=== PATIENT | male | born 1955 | race Caucasian/White ===

== ENCOUNTER 2017-09-14 01:38 | Emergency (ER) | END 2017-09-14 04:36 | disposition home or self-care (01) ==

== ENCOUNTER 2018-01-13 04:04 | Emergency (ER) | END 2018-01-13 07:05 | disposition home or self-care (01) ==

== ENCOUNTER 2018-05-04 12:46 | Emergency (ER) | END 2018-05-04 15:57 | disposition home or self-care (01) ==

== ENCOUNTER 2018-05-04 18:57 | Inpatient (IN) | END 2018-05-06 11:05 | disposition left against medical advice (07) | DRG 438 ==

== ENCOUNTER 2018-08-16 20:20 | Emergency (ER) | END 2018-08-16 23:25 | disposition home or self-care (01) ==

== ENCOUNTER 2018-11-19 01:22 | Inpatient (IN) | payer MEDICARE, OTHER ==
[~2018-11-19] VITALS: Ht 166.4 cm; Wt 71.7 kg
[~2018-11-19 01:22] MED LIST: ALBU18HF INHALATION; AMLO-147 PO; AZIT250T13 PO; CARV6.2579 PO; LISI40TA3 PO; PRED20TA PO
[2018-11-19] MEDS ORDERED: ONDANSETRON 4 MG INJ IV STA ×2 (04:33→09:00)
[2018-11-19] MEDS ORDERED: SOD CHLORIDE 0.9% 1,000 ML IV STA (04:33)
[2018-11-19] MEDS ORDERED: HYDROmorphONE 1 MG/ML SYG IV STA ×2 (04:33→09:00)
--- NOTE | 2018-11-19 04:57 | ERD ---
ER Documentation Chief Complaint Chief Complaint abdominal pain x 1 day HPI This is a 63-year-old male who had the onset of right lower quadrant pain at 8 PM this evening with some mild radiation to the right mid abdomen. He says he also had some diarrhea. The pain is moderate and constant. Noticed history of kidney stones and no appendectomy. No hematuria or dysuria and is not worse when he urinates. No radiation into the testicle. No back pain no chest pain or shortness of breath no vomiting or fever ROS All systems reviewed and are negative except as per history of present illness. Medications Home Meds Active Scripts Prednisone* (Prednisone*) 20 Mg Tab, 60 MG PO DAILY for 5 Days, TAB Prov:BRYANT JAMES MD 08/16/18 Albuterol Sulfate* (Ventolin HFA*) 18 Gm Hfa.aer.ad, 2 PUFF INHALATION Q4H PRN for WHEEZING, #1 INHALER Prov:BRYANT JAMES MD 08/16/18 Azithromycin* (Azithromycin*) 250 Mg Tablet, 250 MG PO DAILY, #4 TAB Prov:BRYANT JAMES MD 08/16/18 Reported Medications Carvedilol* (Carvedilol*) 6.25 Mg Tablet, 6.25 MG PO BID, #60 TAB 05/04/18 Amlodipine Besylate* (Amlodipine Besylate*) 10 Mg Tablet, 10 MG PO DAILY, #30 TAB 05/04/18 Lisinopril* (Lisinopril*) 40 Mg Tablet, 40 MG PO DAILY, #30 TAB 05/04/18 Allergies Allergies: Coded Allergies: No Known Allergy (Unverified , 08/16/18) PMhx/Soc History of Surgery: No Anesthesia Reaction: No Hx Neurological Disorder: No Hx Respiratory Disorders: No Hx Cardiac Disorders: Yes (HTN) Hx Psychiatric Problems: Yes (Anxiety) Hx Miscellaneous Medical Probl: No (Past drug use pt on methadone) Hx Alcohol Use: No Hx Substance Use: Yes (past IV drug use) Hx Tobacco Use: Yes Smoking Status: Current every day smoker FmHx Family History: No coronary disease Physical Exam Vitals Vital Signs Date Temp Pulse Resp B/P (MAP) Pulse Ox O2 O2 Flow FiO2 Time Delivery Rate 11/19/18 98.0 81 18 165/93 96 Room Air 04:45 (117) 11/19/18 98.0 70 18 111/77 96 01:31 (88) Physical Exam Const: Well-developed, well-nourished Head: Atraumatic, normocephalic Eyes: Normal Conjunctiva, PERRLA, EOMI, normal sclera, no nystagmus ENT: Normal External Ears, Nose and Mouth, moist mucus membranes. Neck: Full range of motion. No meningismus, no lymphadenopathy. Resp: Clear to auscultation bilaterally, no wheezing, rhonchi, rales Cardio: Regular rate and rhythm, no murmurs, S1 S2 present Abd: Soft, moderate right lower quadrant tenderness, non distended. Normal bowel sounds, no guarding or rebound, no pulsitile abdominal masses or bruits Skin: No petechiae or rashes, no ecchymosis , no maculopapular rash Back: No midline or flank tenderness Ext: No cyanosis, or edema, FROM x 4, normal inspection, neurovascularly intact x 4 Neur: Awake and alert, STR 5/5 x 4, sensation intact x 4, no focal findings, cerebellum intact Psych: Normal Mood and Affect Results 24 hrs Current Medications Medications Dose Sig/Milena Start Time Status Last (Trade) Ordered Route PRN Stop Time Admin Dose Reason Admin Sodium 1,000 ml @ Q1H STAT 11/19/18 11/19/18 Chloride 1,000 mls/hr IV 04:33 05:01 11/19/18 05:32 1 mg ONCE STAT 11/19/18 DC 11/19/18 Hydromorphone IV 04:33 05:01 HCl 11/19/18 04:34 (Dilaudid) Ondansetron 4 mg ONCE STAT 11/19/18 DC 11/19/18 HCl (Zofran IV 04:33 05:01 Inj) 11/19/18 04:34 Procedures/MDM The nurses had a difficult time placing an IV and getting blood. Therefore Dr. Kennedy will follow up with labs and CT scan of abdomen and disposition Departure Diagnosis: Primary Impression: Abdominal pain Abdominal location: right lower quadrant Qualified Codes: R10.31 - Right lower quadrant pain Condition: Stable LLUVIA COULTERERISJose AcostaTrupti MCCOY Nov 19, 2018 04:57
[2018-11-19] MEDS ORDERED: IOHEXOL 300MG/ML 150 ML BTL ONE (05:38)
[2018-11-19] MEDS ORDERED: SOD CHLORIDE 0.9% 100 ML ONE (05:38)
[2018-11-19] MEDS ORDERED: CITA10TA5 PO (05:46)
[2018-11-19] MEDS ORDERED: HYDR-3029 PO (05:46)
[2018-11-19] MEDS ORDERED: PIPER-TAZO 3.375 GM IV (PMX) 100 ML IVPB ONE (09:00)
[2018-11-19] MEDS ORDERED: ONDANSETRON 4 MG INJ IV PRN ×3 (09:30→23:30)
[2018-11-19] MEDS ORDERED: ACETAMINOPHEN 325 MG TAB PO PRN (09:30)
--- NOTE | 2018-11-19 09:45 | QN ---
Documentation Comment Patient was endorsed to me pending labs and imaging. The patient is elevated white count of 19. The patient has focal tenderness to the right side of the abdomen. His initial CT with IV contrast had infiltration in the right upper extremity. The patient initially refused repeat CAT scan without contrast. I had a prolonged conversation with the patient discussing risk benefits and alternatives and my concern for acute intra-abdominal process given his localized pain. White count. Patient was agreeable to CT. CT abdomen and pelvis: IMPRESSION: 1. The appendix measures 9 mm in maximal transverse dimension. There are no adjacent inflammatory changes or appendicoliths. 2. Nonspecific small amount of free fluid located in the left half of the pelvis. 3. Bilateral renal cysts. Please note that in the absence of intravenous contrast the study does not evaluate the patency of the vasculature. While the patient CT does not show definitive evidence of acute appendicitis the patient's localized right lower quadrant pain and localized peritonitis as well as with elevated white count is concerning for this process. The patient would benefit from hospitalization, general surgery consultation. He is made n.p.o. A midline was inserted and the patient was given Zosyn. The patient did have infiltration of the right upper extremity. On assessment the patient has no evidence of compartment syndrome. Continue to monitor. Accepting care team and consultations: I discussed the current laboratory data, diagnostic imaging and emergency care provided. Admitting team: Dr. Guy Admitting team indication: Insurance directed General surgeon Dr. Morocho was notified of consultation. Diagnostic impression #1 right lower quadrant abdominal pain #2 acute leukocytosis #3 rule out acute appendicitis JOSE LUIS THOMAS MD Nov 19, 2018 09:45
--- NOTE | 2018-11-19 10:05 | HP ---
Date/Time of Note Date/Time of Note DATE: 11/19/18 TIME: 10:05 Assessment/Plan VTE Prophylaxis SCD applied (from Nsg): Yes Pharmacological prophylaxis: NA/contraindicated Pharm contraindication: low risk/ambulating Lines/Catheters IV Catheter Type (from Nrsg): Saline Lock Assessment/Plan Hospital Course SUBJECTIVE: Seen and evaluated patient in ER room 9. Having 10 out of 10 on lower abdominal/right lower quadrant areas. OBJECTIVE: Vital signs-see below PHYSICAL EXAM: Constitutional: Well-developed, adequately built, lying in bed comfortably. Psych: nl mood/affect, no complaints Head: atraumatic, normocephalic Eyes: nl conjunctiva, nl sclera ENMT: mucosa pink and moist, nl external ears & nose Neck: non-tender, supple Respiratory: clear to auscultation, normal air movement Cardiovascular: nl pulses, regular rate and rhythm Gastrointestinal: Tenderness to RLQ/lower abdomen. No rebound tenderness. .Active bowel sounds all 4 quadrants. Musculoskeletal/extremities: nl extremities to inspection, motor strength equal bilaterally, no focal deficit. Normal pulses,no cyanosis, no edema. 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 1. Abdominal pain/RLQ pain. Rule out etiologies. -CT showed appendix measures 9 mm in maximal transverse dimension. There are no adjacent inflammatory changes or appendicolith=> surgery has been consulted from ER. -Keep patient n.p.o. IV fluids, PRN pain control. No indication for antibiotic at this time as there is no evidence of fevers. Leukocytosis can be reactive. -Obtain lipase,UA and cultures to rule out other etiologies 2. Renal cyst. -Stable renal function. Previously measured 6.3 x 4.5 x 5.2 cm, now 6.9 x 6.8 cm -Urine studies, MRI eval =>Although its very unlikely, I will consult urology to r/o this is not contributing to his symptoms. 3. Leukocytosis w/Left shift , likely concurrent with #1 -Will keep patient on cipro+flagyl -obtain CS. 4. Hypertension -As patient will be kept n.p.o., we will treat with as needed hydralazine. Currently blood pressure stable. Once patient is stable for oral intake, we will resume his home antihypertensives. 5. Tobacco use. -Cessation advised 6. History of IV drug abuse documented -Refused history of illicit drug use. However, we recommend obtaining a urine drug toxicology and blood toxicology. 7. Psychiatric disorders. -Resume home medications once stable for oral. DVT prophylaxis: SCDs PUD prophylaxis: Pepcid CODE STATUS: Full code Diet: N.p.o. Rest of the management depend on hospital course. Approximately 60 m spent on this history and physical. Patient was seen in collaboration with Dr. Beard. Result Diagram: 11/19/18 0552 11/19/18 0552 Results 24hrs Laboratory Tests Test 11/19/18 05:52 White Blood Count 19.5 #H Red Blood Count 5.40 Hemoglobin 16.1 Hematocrit 45.9 Mean Corpuscular Volume 85.0 Mean Corpuscular Hemoglobin 29.8 Mean Corpuscular Hemoglobin Concent 35.1 Red Cell Distribution Width 13.1 Platelet Count 244 Mean Platelet Volume 9.6 Immature Granulocytes % 0.400 Neutrophils % 91.3 H Lymphocytes % 4.1 L Monocytes % 4.0 Eosinophils % 0.1 Basophils % 0.1 Nucleated Red Blood Cells % 0.0 Immature Granulocytes # 0.070 H Neutrophils # 17.8 H Lymphocytes # 0.8 Monocytes # 0.8 Eosinophils # 0.0 Basophils # 0.0 Nucleated Red Blood Cells # 0.0 Sodium Level 139 Potassium Level 4.2 Chloride Level 105 Carbon Dioxide Level 20 L Anion Gap 14 H Blood Urea Nitrogen 9 Creatinine 0.67 Est Glomerular Filtrat Rate mL/min > 60 Glucose Level 157 Calcium Level 9.9 Total Bilirubin 0.4 Direct Bilirubin 0.00 Indirect Bilirubin 0.4 Aspartate Amino Transf (AST/SGOT) 24 Alanine Aminotransferase (ALT/SGPT) 14 Alkaline Phosphatase 88 Total Protein 8.5 H Albumin 4.8 Globulin 3.70 H Albumin/Globulin Ratio 1.29 HPI/ROS Admit Date/Time Admit Date/Time Hx of Present Illness 63-year-old male with a history of hypertension, psychiatric disorders, tobacco use, pancreatitis, documented heroine abuse in the past although patient now refuse it, presented to the emergency room with sudden onset of right lower quadrant/lower and periumbilical abdominal pain started overnight. Patient did not have any fevers, chills, nausea, vomiting, diarrhea, constipation, loss of appetite, chest pain, palpitation, dizziness, or other constitutional symptoms. He also reported mild headache. This patient was known to our hospitalist group in 2017 where he was admitted with pancreatitis, acute kidney injury and patient went AGAINST MEDICAL ADVICE at that time as he insisted to smoke. In ER, initial labs showed white count 19,500. Otherwise unremarkable. Stable vital signs. No fevers. A CT abdomen and pelvis showed 9 mm in maximal transverse dimension. There was evidence of bilateral renal cyst. In ER, patient was given Zosyn, IV fluids and Dilaudid and a surgical consult was called for possible concern for appendicitis. ROS A 12 point review of system was assessed and is negative other than what is mentioned in the HPI. PMH/Family/Social Past Medical History See HPI Medications Current Medications Ondansetron HCl (Zofran Inj) 4 mg BRIDGE ORDER PRN IV NAUSEA/VOMITING; Start 11/19/18 at 09:30; Stop 11/20/18 at 09:29 Acetaminophen (Tylenol Tab) 650 mg ER BRIDGE PRN PO .MILD PAIN 1-3 OR TEMP; Start 11/19/18 at 09:30; Stop 11/20/18 at 09:29 Coded Allergies: No Known Allergy (Unverified , 11/19/18) Past Surgical History None Past Surgical Hx: other Family History Significant Family History: no pertinent family hx Social History Current every day tobacco use, history of IV drug abuse documented in EMR althou gh patient refused that. Smoking Status: Current every day smoker Exam/Review of Systems Vital Signs Vitals Vital Signs Date Temp Pulse Resp B/P (MAP) Pulse Ox O2 O2 Flow FiO2 Time Delivery Rate 11/19/18 98.0 81 18 165/93 96 Room Air 04:45 (117) ODALYS MADDOX NP Nov 19, 2018 10:05
[2018-11-19] MEDS ORDERED: hydrOXYzine HCL 10 MG TAB PO PRN (10:30)
[2018-11-19] MEDS ORDERED: ACETAMINOPHEN 650 MG SUPP PR PRN (10:30)
[2018-11-19] MEDS ORDERED: OXYCODONE/ACETAMINOPHEN (5/325) TAB PO PRN ×2 (10:30→23:30)
[2018-11-19] MEDS ORDERED: hydrALAzine 20 MG INJ IV PRN ×2 (10:30→23:30)
[2018-11-19] MEDS ORDERED: NACL 0.9% 3 ML SYG IV SCH (10:30)
[2018-11-19] MEDS ORDERED: SOD CHLORIDE 0.9% 1,000 ML IV SCH (11:00)
[2018-11-19 11:02] VITALS: Ht 166.4 cm; Wt 71.7 kg
[2018-11-19 11:08] VITALS: BP 136/86; PULSE 87; RESP 18
[2018-11-19] MEDS: CITALOPRAM 20 MG TAB PO SCH (13:15)
[2018-11-19] MEDS: LISINOPRIL 20 MG TAB PO SCH (13:16)
[2018-11-19] MEDS: AMLODIPINE 10 MG TAB PO SCH (13:16)
[2018-11-19] MEDS: CIPROFLOXACIN 400MG/D5W 200 ML IVPB SCH ×2 (13:18→23:41)
[2018-11-19 14:50] VITALS: BP 159/85; PULSE 93; RESP 16
[2018-11-19] MEDS: metroNIDAZOLE 500 MG/NS (PMX) 100 ML IVPB SCH ×2 (15:33→22:24)
--- NOTE | 2018-11-19 18:48 | CONS ---
Assessment/Plan Assessment/Plan Hospital Course (Demo Recall) 63-year-old male presented to the emergency room was right lower quadrant abdominal pain. He underwent a CT scan of the abdomen and pelvis and that showed renal cysts. A urological consultation was requested. Patient states that he has had the pain for about 8 hours. The pain is localized to the right lower quadrant and radiates toward the back and initially started like a knife. There was no associated nausea or vomiting. No radiation to the genital area or legs. He denies any similar pain in the past. Patient does have a history of drug abuse. He has used heroine and states that he is on methadone. On the exam his pain is located to the right side of the umbilicus and toward the right lower quadrant. There is no evidence of hernia in that area. Genitalia are normal and the rectal exam revealed normal soft prostate. The CT scan showed renal cysts but these do not cause pain and his pain is unlikely to be from his kidneys. Urology merrill would recommend to just observe Consultation Date/Type/Reason Admit Date/Time November 19, 2018 Date of Consultation: Nov 19, 2018 Type of Consult Urology Reason for Consultation Right lower quadrant pain and renal cysts Requesting Provider: PALOMO PATEL Date/Time of Note DATE: 11/19/18 TIME: 18:31 Hx of Present Illness 63-year-old male presented to the emergency room was right lower quadrant abdominal pain. He underwent a CT scan of the abdomen and pelvis and that showed renal cysts. A urological consultation was requested. Patient states that he has had the pain for about 8 hours. The pain is localized to the right lower quadrant and radiates toward the back and initially started like a knife. There was no associated nausea or vomiting. No radiation to the genital area or legs. He denies any similar pain in the past. Patient does have a history of drug abuse. He has used heroine and states that he is on methadone. Constitutional: no complaints Eyes: no complaints ENT: no complaints Respiratory: no complaints; No shortness of breath Cardiovascular: no complaints; No chest pain Gastrointestinal: pain (Right lower quadrant) Genitourinary: No dysuria Musculoskeletal: no complaints Skin: no complaints Neurologic: no complaints Endocrine: no complaints Lymphatic: no complaints Psychological: other (Patient very uptight and hesitant to give any history) Immunologic: no complaints Past Medical History Medical History: hypertension Home Meds Active Scripts Albuterol Sulfate* (Ventolin HFA*) 18 Gm Hfa.aer.ad, 2 PUFF INHALATION Q4H PRN for WHEEZING, #1 INHALER Prov:BRYANT JAMES MD 08/16/18 Reported Medications Hydroxyzine Hcl* (Hydroxyzine Hcl*) 10 Mg Tablet, 10 MG PO QAM PRN for ITCHING, #30 TAB 11/19/18 Citalopram Hydrobromide* (Citalopram Hydrobromide*) 10 Mg Tablet, 10 MG PO QAM for 30 Days, #30 11/19/18 Carvedilol* (Carvedilol*) 6.25 Mg Tablet, 6.25 MG PO BID, #60 TAB 05/04/18 Amlodipine Besylate* (Amlodipine Besylate*) 10 Mg Tablet, 10 MG PO DAILY, #30 TAB 05/04/18 Lisinopril* (Lisinopril*) 40 Mg Tablet, 40 MG PO DAILY, #30 TAB 05/04/18 Discontinued Scripts Prednisone* (Prednisone*) 20 Mg Tab, 60 MG PO DAILY for 5 Days, TAB Prov:BRYANT JAMES MD 08/16/18 Azithromycin* (Azithromycin*) 250 Mg Tablet, 250 MG PO DAILY, #4 TAB Prov:BRYANT JAMES MD 08/16/18 Medications Current Medications Ondansetron HCl (Zofran Inj) 4 mg BRIDGE ORDER PRN IV NAUSEA/VOMITING; Start 11/19/18 at 09:30; Stop 11/20/18 at 09:29 Acetaminophen (Tylenol Tab) 650 mg ER BRIDGE PRN PO .MILD PAIN 1-3 OR TEMP; Start 11/19/18 at 09:30; Stop 11/20/18 at 09:29 Sodium Chloride 1,000 ml @ 75 mls/hr [id number] IV ; Start 11/19/18 at 11:00 IV Flush (NS 3 ml) 3 ml PER PROTOCOL IV ; Start 11/19/18 at 10:30 Ondansetron HCl (Zofran Inj) 4 mg Q6H PRN IV NAUSEA/VOMITING; Start 11/19/18 at 10:30 Acetaminophen (Tylenol Supp) 650 mg Q6H PRN TN .PAIN 1-3 OR TEMP; Start 11/05 01/23 at 10:30 Oxycodone/ Acetaminophen (Percocet (5/ 325)) 2 tab Q6H PRN PO .SEVERE PAIN 7- 10; Start 11/19/18 at 10:30 Famotidine (Pepcid Iv) 20 mg Q12 IV ; Start 11/19/18 at 21:00 Hydralazine HCl (Apresoline) 10 mg Q6H PRN IV SBP>160; Start 11/19/18 at 10:30 Amlodipine Besylate (Norvasc) 10 mg DAILY PO ; Start 11/19/18 at 12:00 Carvedilol (Coreg) 6.25 mg BID PO ; Start 11/19/18 at 12:00 Citalopram Hydrobromide (Celexa) 10 mg QAM PO ; Start 11/19/18 at 12:00 Hydroxyzine HCl (Atarax) 10 mg QAM PRN PO ITCHING; Start 11/19/18 at 10:30 Lisinopril (Zestril) 40 mg DAILY PO ; Start 11/19/18 at 12:00 Ciprofloxacin/ Dextrose 200 ml @ 200 mls/hr Q12 IVPB Last administered on 11/19/18at 13:18; Admin Dose 200 MLS/HR; Start 11/19/18 at 13:00 Metronidazole 100 ml @ 100 mls/hr Q8 IVPB Last administered on 11/19/18at 15:33; Admin Dose 100 MLS/HR; Start 11/19/18 at 14:00 Allergies: Coded Allergies: No Known Allergy (Unverified , 11/19/18) Past Surgical History Past Surgical Hx: other (Right shoulder surgery) Social History Alcohol Use: occasionally Smoking Status: Current every day smoker Drug Use: heroin Exam/Review of Systems Exam Vitals Vital Signs Date Temp Pulse Resp B/P (MAP) Pulse Ox O2 O2 Flow FiO2 Time Delivery Rate 11/19/18 100.0 93 16 159/85 94 Room Air 14:50 (109) Constitutional: alert, oriented Psych: other (One has to ask the questions multiple times some time for him to answer.) Head: normocephalic Eyes: nl conjunctiva ENMT: nl external ears & nose Neck: supple, non-tender Respiratory: normal air movement; No wheezing Cardiovascular: nl pulses; No jugular venous distention (JVD) Gastrointestinal: soft, tender (Right lower quadrant and to the right side of the umbilicus) Genitourinary - Male: nl penis, nl scrotum, other (Rectal exam shows prostate that is soft and not enlarged) Musculoskeletal: nl extremities to inspection, muscle weakness Extremities: No calf tenderness Neurological: nl mental status Skin: nl turgor Results Result Diagram: 11/19/18 0552 11/19/18 0552 Results 24hrs Laboratory Tests Test 11/19/18 05:52 11/19/18 13:43 11/19/18 14:11 White Blood Count 19.5 #H Red Blood Count 5.40 Hemoglobin 16.1 Hematocrit 45.9 Mean Corpuscular Volume 85.0 Mean Corpuscular Hemoglobin 29.8 Mean Corpuscular Hemoglobin Concent 35.1 Red Cell Distribution Width 13.1 Platelet Count 244 Mean Platelet Volume 9.6 Immature Granulocytes % 0.400 Neutrophils % 91.3 H Lymphocytes % 4.1 L Monocytes % 4.0 Eosinophils % 0.1 Basophils % 0.1 Nucleated Red Blood Cells % 0.0 Immature Granulocytes # 0.070 H Neutrophils # 17.8 H Lymphocytes # 0.8 Monocytes # 0.8 Eosinophils # 0.0 Basophils # 0.0 Nucleated Red Blood Cells # 0.0 Sodium Level 139 Potassium Level 4.2 Chloride Level 105 Carbon Dioxide Level 20 L Anion Gap 14 H Blood Urea Nitrogen 9 Creatinine 0.67 Est Glomerular Filtrat Rate mL/min > 60 Glucose Level 157 Calcium Level 9.9 Total Bilirubin 0.4 Direct Bilirubin 0.00 Indirect Bilirubin 0.4 Aspartate Amino Transf (AST/SGOT) 24 Alanine Aminotransferase (ALT/SGPT) 14 Alkaline Phosphatase 88 Total Protein 8.5 H Albumin 4.8 Globulin 3.70 H Albumin/Globulin Ratio 1.29 Amylase Level 48 Lipase 84 Ethyl Alcohol Level < 10.0 H Urine Color YELLOW Urine Clarity CLEAR Urine pH 8.0 Urine Specific Butler 1.034 H Urine Ketones NEGATIVE Urine Nitrite NEGATIVE Urine Bilirubin NEGATIVE Urine Urobilinogen NEGATIVE Urine Leukocyte Esterase NEGATIVE Urine Microscopic RBC 4 Urine Microscopic WBC 0 Urine Hemoglobin 1+ H Urine Glucose NEGATIVE Urine Total Protein NEGATIVE Urine Opiates Screen Positive Urine Barbiturates Negative Urine Amphetamines Screen Negative Urine Benzodiazepines Screen Negative Urine Cocaine Screen Negative Urine Cannabinoids Negative Imaging Imaging CT scan of the abdomen and pelvis: In the absence of intravenous contrast, the study constitutes a limited assessment of the solid organs, bowel and vessels. LUNG BASES: Mild emphysematous changes. The heart is not enlarged. ABDOMEN/PELVIS: Liver: Normal noncontrast appearance. Gallbladder: Normal noncontrast appearance. Bile ducts: No intrahepatic or extrahepatic biliary duct dilatation. Spleen: Normal noncontrast appearance. Pancreas: Normal noncontrast appearance. Adrenal glands: Normal noncontrast appearance. Kidneys and ureters: No hydronephrosis. Multiple bilateral renal cysts the largest located in the right mid/upper pole measuring 6.9 x 6.8 cm Aorta and IVC: There are aortic atherosclerotic calcifications. Lymph nodes: Normal noncontrast appearance. Gastrointestinal tract: The stomach is partly collapsed. Small bowel loops are nondistended. Moderate retained fecal matter is seen in the colon. Appendix: The appendix measures 9 mm in maximal transverse dimension on coronal image 38 of series 601. There are no adjacent inflammatory changes or evidence of an appendicolith. Bladder: Normal noncontrast appearance. Pelvic Organs: Normal noncontrast appearance. Peritoneal cavity: No pneumoperitoneum. Small amount of free fluid is identified in the left half of the pelvis on coronal image 60. Abdominal wall: Normal noncontrast appearance. MUSCULOSKELETAL: Bones: No acute fracture.No suspicious bone lesions. Severe disc height loss T8- T9, T9-T10, and T11-T12. Medications Medication Current Medications Ondansetron HCl (Zofran Inj) 4 mg BRIDGE ORDER PRN IV NAUSEA/VOMITING; Start 11/19/18 at 09:30; Stop 11/20/18 at 09:29 Acetaminophen (Tylenol Tab) 650 mg ER BRIDGE PRN PO .MILD PAIN 1-3 OR TEMP; Start 11/19/18 at 09:30; Stop 11/20/18 at 09:29 Sodium Chloride 1,000 ml @ 75 mls/hr [id number] IV ; Start 11/19/18 at 11:00 IV Flush (NS 3 ml) 3 ml PER PROTOCOL IV ; Start 11/19/18 at 10:30 Ondansetron HCl (Zofran Inj) 4 mg Q6H PRN IV NAUSEA/VOMITING; Start 11/19/18 at 10:30 Acetaminophen (Tylenol Supp) 650 mg Q6H PRN TN .PAIN 1-3 OR TEMP; Start 11/19/18 at 10:30 Oxycodone/ Acetaminophen (Percocet (5/ 325)) 2 tab Q6H PRN PO .SEVERE PAIN 7- 10; Start 11/19/18 at 10:30 Famotidine (Pepcid Iv) 20 mg Q12 IV ; Start 11/19/18 at 21:00 Hydralazine HCl (Apresoline) 10 mg Q6H PRN IV SBP>160; Start 11/19/18 at 10:30 Amlodipine Besylate (Norvasc) 10 mg DAILY PO ; Start 11/19/18 at 12:00 Carvedilol (Coreg) 6.25 mg BID PO ; Start 11/19/18 at 12:00 Citalopram Hydrobromide (Celexa) 10 mg QAM PO ; Start 11/19/18 at 12:00 Hydroxyzine HCl (Atarax) 10 mg QAM PRN PO ITCHING; Start 11/19/18 at 10:30 Lisinopril (Zestril) 40 mg DAILY PO ; Start 11/19/18 at 12:00 Ciprofloxacin/ Dextrose 200 ml @ 200 mls/hr Q12 IVPB Last administered on 11/19/18at 13:18; Admin Dose 200 MLS/HR; Start 11/19/18 at 13:00 Metronidazole 100 ml @ 100 mls/hr Q8 IVPB Last administered on 11/19/18at 15:33; Admin Dose 100 MLS/HR; Start 11/19/18 at 14:00 JULIAN PETIT MD Nov 19, 2018 18:41
[2018-11-19 20:38] VITALS: BP 138/86; PULSE 96; RESP 18
[2018-11-19] MEDS: FAMOTIDINE 20 MG INJ IV SCH (20:53)
--- NOTE | 2018-11-19 23:29 | PREAC ---
Date/Time of Note Date/Time of Note DATE: 11/19/18 TIME: 23:27 Anesthesia Eval and Record Evaluation Time Pre-Procedure Interview DATE: 11/19/18 TIME: 23:27 Age 63 Sex male NPO: 8 hrs Preoperative diagnosis Acute Appendicitis Planned procedure Laparoscopic Appendicitis Past Medical History Past Medical History: Includes Cardio: HTN Psych: Depression, Anxiety Recreational drugs: Heroin (history of Heroin abuse but now on methadone) Surgery & Anesthesia Issues No known issue Meds Anticoagulation: No Beta Leigha within 24 hr: Yes Active Scripts Albuterol Sulfate* (Ventolin HFA*) 18 Gm Hfa.aer.ad, 2 PUFF INHALATION Q4H PRN for WHEEZING, #1 INHALER Prov:BRYANT JAMES MD 08/16/18 Reported Medications Hydroxyzine Hcl* (Hydroxyzine Hcl*) 10 Mg Tablet, 10 MG PO QAM PRN for ITCHING, #30 TAB 11/19/18 Citalopram Hydrobromide* (Citalopram Hydrobromide*) 10 Mg Tablet, 10 MG PO QAM for 30 Days, #30 11/19/18 Carvedilol* (Carvedilol*) 6.25 Mg Tablet, 6.25 MG PO BID, #60 TAB 05/04/18 Amlodipine Besylate* (Amlodipine Besylate*) 10 Mg Tablet, 10 MG PO DAILY, #30 TAB 05/04/18 Lisinopril* (Lisinopril*) 40 Mg Tablet, 40 MG PO DAILY, #30 TAB 05/04/18 Discontinued Scripts Prednisone* (Prednisone*) 20 Mg Tab, 60 MG PO DAILY for 5 Days, TAB Prov:BRYANT JAMES MD 08/16/18 Azithromycin* (Azithromycin*) 250 Mg Tablet, 250 MG PO DAILY, #4 TAB Prov:BRYANT JAMES MD 08/16/18 Current Medications Ondansetron HCl (Zofran Inj) 4 mg BRIDGE ORDER PRN IV NAUSEA/VOMITING; Start 11/19/18 at 09:30; Stop 11/20/18 at 09:29 Acetaminophen (Tylenol Tab) 650 mg ER BRIDGE PRN PO .MILD PAIN 1-3 OR TEMP; Start 11/19/18 at 09:30; Stop 11/20/18 at 09:29 Sodium Chloride 1,000 ml @ 75 mls/hr [id number] IV ; Start 11/19/18 at 11:00 IV Flush (NS 3 ml) 3 ml PER PROTOCOL IV ; Start 11/19/18 at 10:30 Ondansetron HCl (Zofran Inj) 4 mg Q6H PRN IV NAUSEA/VOMITING; Start 11/19/18 at 10:30 Acetaminophen (Tylenol Supp) 650 mg Q6H PRN [place] .PAIN 1-3 OR TEMP; Start 11/19/18 at 10:30 Oxycodone/ Acetaminophen (Percocet (5/ 325)) 2 tab Q6H PRN PO .SEVERE PAIN 7- 10; Start 11/19/18 at 10:30 Famotidine (Pepcid Iv) 20 mg Q12 IV Last administered on 11/19/18at 20:53; Admin Dose 20 MG; Start 11/19/18 at 21:00 Hydralazine HCl (Apresoline) 10 mg Q6H PRN IV SBP>160; Start 11/19/18 at 10:30 Amlodipine Besylate (Norvasc) 10 mg DAILY PO ; Start 11/19/18 at 12:00 Carvedilol (Coreg) 6.25 mg BID PO ; Start 11/19/18 at 12:00 Citalopram Hydrobromide (Celexa) 10 mg QAM PO ; Start 11/19/18 at 12:00 Hydroxyzine HCl (Atarax) 10 mg QAM PRN PO ITCHING; Start 11/19/18 at 10:30 Lisinopril (Zestril) 40 mg DAILY PO ; Start 11/19/18 at 12:00 Ciprofloxacin/ Dextrose 200 ml @ 200 mls/hr Q12 IVPB Last administered on 11/19/18at 13:18; Admin Dose 200 MLS/HR; Start 11/19/18 at 13:00 Metronidazole 100 ml @ 100 mls/hr Q8 IVPB Last administered on 11/19/18at 22:24; Admin Dose 100 MLS/HR; Start 11/19/18 at 14:00 Meds reviewed: Yes Allergies Coded Allergies: No Known Allergy (Unverified , 11/19/18) Allergies Reviewed: Yes Labs/Studies Labs Reviewed: Reviewed by anesthesiologist Result Diagram: 11/19/18 0552 11/19/18 0552 Laboratory Tests 11/19/18 05:52 test: N/A Studies: ECG (n/a), CXR (n/a) Pre-procedure Exam Last vitals Vital Signs Date Temp Pulse Resp B/P (MAP) Pulse Ox O2 O2 Flow FiO2 Time Delivery Rate 11/19/18 98.2 96 18 138/86 99 20:38 (103) 11/19/18 Room Air 14:50 Airway: Adequate mouth opening, Adequate thyromental dist Mallampati: Mallampati II Teeth: Normal Lung: Normal Heart: Normal ASA Physical Status ASA physical status: 2 Emergency: E Planned Anesthetic General/MAC: ETT Nerve block: TAP (bilateral) Planned Pain Management Single shot nerve block, Parenteral pain med Pre-operative Attestations Prior to commencing anesthesia and surgery, the patient was re-evaluated, there was verification of: *The patient's identity *The results of appropriate recent lab work and preoperative vital signs *The above evaluation not changing prior to induction *Anesthetic plan, risk benefits, alternative and complications discussed with patient/family; questions answered; patient/family understands, accepts and wishes to proceed. ROSY REVELES MD Nov 19, 2018 23:29
[2018-11-19] MEDS ORDERED: METOCLOPRAMIDE 10 MG INJ IV PRN (23:30)
[2018-11-19] MEDS ORDERED: DIPHENHYDRAMINE 50 MG INJ IV PRN (23:30)
[2018-11-19] MEDS ORDERED: HYDROmorphONE 1 MG/5 ML IV SYRINGE IV PRN ×3 (23:30)
[2018-11-19] MEDS ORDERED: MEPERIDINE 25 MG INJ IV PRN (23:30)
[2018-11-19] MEDS ORDERED: FENTAnyl 50 MCG/ML VIAL IV PRN ×3 (23:30)
[2018-11-19] MEDS ORDERED: EPHEDrine SULFATE 50 MG/5 ML SYG IV PRN (23:30)
[2018-11-19] MEDS ORDERED: LABETALOL HCL 20MG INJ IV PRN (23:30)
[2018-11-19] MEDS ORDERED: PROPOFOL 20 ML ONE (23:31)
[2018-11-19] MEDS ORDERED: MIDAZOLAM 1 MG/ML 2 ML INJ ONE (23:31)
[2018-11-19] MEDS ORDERED: ROCURONIUM 50 MG INJ ONE (23:31)
[2018-11-19] MEDS ORDERED: FENTAnyl 50 MCG/ML VIAL ONE (23:31)
[2018-11-19] MEDS ORDERED: ROPIVACAINE 0.5 % 30 ML VIAL ONE (23:31)
[2018-11-19 23:40] VITALS: BP 145/84; PULSE 83; RESP 16
--- NOTE | 2018-11-19 23:47 | CONS ---
Assessment/Plan Assessment/Plan Assessment/Plan (Daily) Worsening abdominal pain right side of abdomen with CT showing dilation of appendix 9 mm. Patient appears much more tender now on the right side and my clinical suspicion is this is consistent with acute appendicitis despite no significant inflammatory changes on CT. I recommended to the patient that he undergo laparoscopy with laparoscopic appendectomy with possibility of open and understanding that there may be a normal appendix identified but there may be indication for other etiologies of his pain. Patient is agreeable to proceed or has been called we will proceed as soon as scheduling is available Consultation Date/Type/Reason Admit Date/Time November 19, 2018 Date of Consultation: Nov 19, 2018 Type of Consult Surgery consult Reason for Consultation Abdominal pain Requesting Provider: ODALYS MADDOX NP Date/Time of Note DATE: 11/19/18 TIME: 23:47 Hx of Present Illness Patient presented to the emergency room with 2-day history of worsening abdominal pain. Denies any similar symptoms to this in the past. Patient past history significant for substance abuse, heroin now on methadone for the past 2 years. Patient denies any past surgical history or significant past medical history. On evaluation in the emergency room CAT scan showed a dilated appendix without surrounding inflammation though there was also some cysts on the kidneys. Urology consultation did not feel that there was any surgical issues from a urological standpoint. Past Medical History Medical History: hypertension Home Meds Active Scripts Albuterol Sulfate* (Ventolin HFA*) 18 Gm Hfa.aer.ad, 2 PUFF INHALATION Q4H PRN for WHEEZING, #1 INHALER Prov:BRYANT JAMES MD 08/16/18 Reported Medications Hydroxyzine Hcl* (Hydroxyzine Hcl*) 10 Mg Tablet, 10 MG PO QAM PRN for ITCHING, #30 TAB 11/19/18 Citalopram Hydrobromide* (Citalopram Hydrobromide*) 10 Mg Tablet, 10 MG PO QAM for 30 Days, #30 11/19/18 Carvedilol* (Carvedilol*) 6.25 Mg Tablet, 6.25 MG PO BID, #60 TAB 05/04/18 Amlodipine Besylate* (Amlodipine Besylate*) 10 Mg Tablet, 10 MG PO DAILY, #30 TAB 05/04/18 Lisinopril* (Lisinopril*) 40 Mg Tablet, 40 MG PO DAILY, #30 TAB 05/04/18 Discontinued Scripts Prednisone* (Prednisone*) 20 Mg Tab, 60 MG PO DAILY for 5 Days, TAB Prov:BRYANT JAMES MD 08/16/18 Azithromycin* (Azithromycin*) 250 Mg Tablet, 250 MG PO DAILY, #4 TAB Prov:BRYANT JAMES MD 08/16/18 Medications Current Medications Ondansetron HCl (Zofran Inj) 4 mg BRIDGE ORDER PRN IV NAUSEA/VOMITING; Start 11/19/18 at 09:30; Stop 11/20/18 at 09:29 Acetaminophen (Tylenol Tab) 650 mg ER BRIDGE PRN PO .MILD PAIN 1-3 OR TEMP; Start 11/19/18 at 09:30; Stop 11/20/18 at 09:29 Sodium Chloride 1,000 ml @ 75 mls/hr [id number] IV ; Start 11/19/18 at 11:00 IV Flush (NS 3 ml) 3 ml PER PROTOCOL IV ; Start 11/19/18 at 10:30 Ondansetron HCl (Zofran Inj) 4 mg Q6H PRN IV NAUSEA/VOMITING; Start 11/19/18 at 10:30 Acetaminophen (Tylenol Supp) 650 mg Q6H PRN [place] .PAIN 1-3 OR TEMP; Start 11/19/18 at 10:30 Oxycodone/ Acetaminophen (Percocet (5/ 325)) 2 tab Q6H PRN PO .SEVERE PAIN 7- 10; Start 11/19/18 at 10:30 Famotidine (Pepcid Iv) 20 mg Q12 IV Last administered on 11/19/18at 20:53; Admin Dose 20 MG; Start 11/19/18 at 21:00 Hydralazine HCl (Apresoline) 10 mg Q6H PRN IV SBP>160; Start 11/19/18 at 10:30 Amlodipine Besylate (Norvasc) 10 mg DAILY PO ; Start 11/19/18 at 12:00 Carvedilol (Coreg) 6.25 mg BID PO ; Start 11/19/18 at 12:00 Citalopram Hydrobromide (Celexa) 10 mg QAM PO ; Start 11/19/18 at 12:00 Hydroxyzine HCl (Atarax) 10 mg QAM PRN PO ITCHING; Start 11/19/18 at 10:30 Lisinopril (Zestril) 40 mg DAILY PO ; Start 11/19/18 at 12:00 Ciprofloxacin/ Dextrose 200 ml @ 200 mls/hr Q12 IVPB Last administered on 11/19/18at 23:41; Admin Dose 200 MLS/HR; Start 11/19/18 at 13:00 Metronidazole 100 ml @ 100 mls/hr Q8 IVPB Last administered on 11/19/18at 22:24; Admin Dose 100 MLS/HR; Start 11/19/18 at 14:00 Hydromorphone HCl (Dilaudid) 0.2 mg PACU PRN IV MILD PAIN 1-3; Start 11/19/18 at 23:30; Stop 11/20/18 at 04:00 Hydromorphone HCl (Dilaudid) 0.4 mg PACU PRN IV MOD PAIN 4-6; Start 11/19/18 at 23:30; Stop 11/20/18 at 04:00 Hydromorphone HCl (Dilaudid) 0.6 mg PACU PRN IV SEVERE PAIN 7-10; Start 11/19/18 at 23:30; Stop 11/20/18 at 04:00 Fentanyl (Sublimaze) 25 mcg PACU ORDER PRN IV MILD PAIN 1-3; Start 11/19/18 at 23:30; Stop 11/20/18 at 04:00 Fentanyl (Sublimaze) 50 mcg PACU ORDER PRN IV MOD PAIN 4-6; Start 11/19/18 at 23:30; Stop 11/20/18 at 04:00 Fentanyl (Sublimaze) 75 mcg PACU ORDER PRN IV SEVERE PAIN 7-10; Start 11/19/18 at 23:30; Stop 11/20/18 at 04:00 Oxycodone/ Acetaminophen (Percocet (5/ 325)) 1 tab PACU ORDER PRN PO .PAIN 1-5; Start 11/19/18 at 23:30; Stop 11/20/18 at 04:00 Ondansetron HCl (Zofran Inj) 4 mg PACU ORDER PRN IV NAUSEA/VOMITING; Start 11/19/18 at 23:30; Stop 11/20/18 at 04:00 Metoclopramide HCl (Reglan) 10 mg PACU ORDER PRN IV NAUSEA/VOMITING; Start 11/19/18 at 23:30; Stop 11/20/18 at 04:00 Labetalol HCl (Labetalol) 5 mg PACU ORDER PRN IV HIGH BLOOD PRESSURE; Start 11/19/18 at 23:30; Stop 11/20/18 at 04:00 Hydralazine HCl (Apresoline) 5 mg PACU ORDER PRN IV HIGH BLOOD PRESSURE; Start 11/19/18 at 23:30; Stop 11/20/18 at 04:00 Ephedrine Sulfate 5 mg PACU ORDER PRN IV BLOOD PRESSURE SUPPORT; Start 11/19/18 at 23:30; Stop 11/20/18 at 04:00 Meperidine HCl (Demerol) 25 mg PACU ORDER PRN IV .RIGORS; Start 11/19/18 at 23:30; Stop 11/20/18 at 04:00 Diphenhydramine HCl (Benadryl) 25 mg PACU ORDER PRN IV .PRURITUS; Start 11/19/18 at 23:30; Stop 11/20/18 at 04:00 Allergies: Coded Allergies: No Known Allergy (Unverified , 11/19/18) Past Surgical History Past Surgical Hx: other (Right shoulder surgery) Social History Alcohol Use: occasionally Smoking Status: Current every day smoker Drug Use: heroin Exam/Review of Systems Exam Vitals Vital Signs Date Temp Pulse Resp B/P (MAP) Pulse Ox O2 O2 Flow FiO2 Time Delivery Rate 11/19/18 98.6 83 16 145/84 94 23:40 (104) 11/19/18 Room Air 14:50 Exam Patient states that he feels slightly better however on examination his right lower quadrant was significantly tender with local peritonitis. Her graph lungs clear to auscultation. Heart regular rate and rhythm without gallops murmurs or rubs. Abdomen as above marked tenderness right side of abdomen right lower quadrant greater than left. Results Result Diagram: 11/19/18 0552 11/19/18 0552 Results 24hrs Laboratory Tests Test 11/19/18 05:52 11/19/18 13:43 11/19/18 14:11 11/19/18 23:18 White Blood Count 19.5 #H Red Blood Count 5.40 Hemoglobin 16.1 Hematocrit 45.9 Mean Corpuscular 85.0 Volume Mean Corpuscular 29.8 Hemoglobin Mean Corpuscular 35.1 Hemoglobin Concent Red Cell 13.1 Distribution Width Platelet Count 244 Mean Platelet Volume 9.6 Immature 0.400 Granulocytes % Neutrophils % 91.3 H Lymphocytes % 4.1 L Monocytes % 4.0 Eosinophils % 0.1 Basophils % 0.1 Nucleated Red Blood 0.0 Cells % Immature 0.070 H Granulocytes # Neutrophils # 17.8 H Lymphocytes # 0.8 Monocytes # 0.8 Eosinophils # 0.0 Basophils # 0.0 Nucleated Red Blood 0.0 Cells # Sodium Level 139 Potassium Level 4.2 Chloride Level 105 Carbon Dioxide Level 20 L Anion Gap 14 H Blood Urea Nitrogen 9 Creatinine 0.67 Est Glomerular > 60 Filtrat Rate mL/min Glucose Level 157 Calcium Level 9.9 Total Bilirubin 0.4 Direct Bilirubin 0.00 Indirect Bilirubin 0.4 Aspartate Amino 24 Transf (AST/SGOT) Alanine 14 Aminotransferase (AL T/SGPT) Alkaline Phosphatase 88 Total Protein 8.5 H Albumin 4.8 Globulin 3.70 H Albumin/Globulin 1.29 Ratio Amylase Level 48 Lipase 84 Ethyl Alcohol Level < 10.0 H Urine Color YELLOW Urine Clarity CLEAR Urine pH 8.0 Urine Specific 1.034 H Criders Urine Ketones NEGATIVE Urine Nitrite NEGATIVE Urine Bilirubin NEGATIVE Urine Urobilinogen NEGATIVE Urine Leukocyte NEGATIVE Esterase Urine Microscopic 4 RBC Urine Microscopic 0 WBC Urine Hemoglobin 1+ H Urine Glucose NEGATIVE Urine Total Protein NEGATIVE Urine Opiates Screen Positive Urine Barbiturates Negative Urine Amphetamines Negative Screen Urine Negative Benzodiazepines Screen Urine Cocaine Screen Negative Urine Cannabinoids Negative Prothrombin Time 14.4 Prothrombin Time 1.1 Ratio INR International 1.11 Normalized Ratio Activated 34.7 Partial Thromboplast Time Medications Medication Current Medications Ondansetron HCl (Zofran Inj) 4 mg BRIDGE ORDER PRN IV NAUSEA/VOMITING; Start 11/19/18 at 09:30; Stop 11/20/18 at 09:29 Acetaminophen (Tylenol Tab) 650 mg ER BRIDGE PRN PO .MILD PAIN 1-3 OR TEMP; Start 11/19/18 at 09:30; Stop 11/20/18 at 09:29 Sodium Chloride 1,000 ml @ 75 mls/hr [id number] IV ; Start 11/19/18 at 11:00 IV Flush (NS 3 ml) 3 ml PER PROTOCOL IV ; Start 11/19/18 at 10:30 Ondansetron HCl (Zofran Inj) 4 mg Q6H PRN IV NAUSEA/VOMITING; Start 11/19/18 at 10:30 Acetaminophen (Tylenol Supp) 650 mg Q6H PRN [place] .PAIN 1-3 OR TEMP; Start 11/19/18 at 10:30 Oxycodone/ Acetaminophen (Percocet (5/ 325)) 2 tab Q6H PRN PO .SEVERE PAIN 7-10; Start 11/19/18 at 10:30 Famotidine (Pepcid Iv) 20 mg Q12 IV Last administered on 11/19/18at 20:53; Admin Dose 20 MG; Start 11/19/18 at 21:00 Hydralazine HCl (Apresoline) 10 mg Q6H PRN IV SBP>160; Start 11/19/18 at 10:30 Amlodipine Besylate (Norvasc) 10 mg DAILY PO ; Start 11/19/18 at 12:00 Carvedilol (Coreg) 6.25 mg BID PO ; Start 11/19/18 at 12:00 Citalopram Hydrobromide (Celexa) 10 mg QAM PO ; Start 11/19/18 at 12:00 Hydroxyzine HCl (Atarax) 10 mg QAM PRN PO ITCHING; Start 11/19/18 at 10:30 Lisinopril (Zestril) 40 mg DAILY PO ; Start 11/19/18 at 12:00 Ciprofloxacin/ Dextrose 200 ml @ 200 mls/hr Q12 IVPB Last administered on 11/19/18at 23:41; Admin Dose 200 MLS/HR; Start 11/19/18 at 13:00 Metronidazole 100 ml @ 100 mls/hr Q8 IVPB Last administered on 11/19/18at 22:24; Admin Dose 100 MLS/HR; Start 11/19/18 at 14:00 Hydromorphone HCl (Dilaudid) 0.2 mg PACU PRN IV MILD PAIN 1-3; Start 11/19/18 at 23:30; Stop 11/20/18 at 04:00 Hydromorphone HCl (Dilaudid) 0.4 mg PACU PRN IV MOD PAIN 4-6; Start 11/19/18 at 23:30; Stop 11/20/18 at 04:00 Hydromorphone HCl (Dilaudid) 0.6 mg PACU PRN IV SEVERE PAIN 7-10; Start 11/19/18 at 23:30; Stop 11/20/18 at 04:00 Fentanyl (Sublimaze) 25 mcg PACU ORDER PRN IV MILD PAIN 1-3; Start 11/19/18 at 23:30; Stop 11/20/18 at 04:00 Fentanyl (Sublimaze) 50 mcg PACU ORDER PRN IV MOD PAIN 4-6; Start 11/19/18 at 23:30; Stop 11/20/18 at 04:00 Fentanyl (Sublimaze) 75 mcg PACU ORDER PRN IV SEVERE PAIN 7-10; Start 11/19/18 at 23:30; Stop 11/20/18 at 04:00 Oxycodone/ Acetaminophen (Percocet (5/ 325)) 1 tab PACU ORDER PRN PO .PAIN 1-5; Start 11/19/18 at 23:30; Stop 11/20/18 at 04:00 Ondansetron HCl (Zofran Inj) 4 mg PACU ORDER PRN IV NAUSEA/VOMITING; Start 11/19/18 at 23:30; Stop 11/20/18 at 04:00 Metoclopramide HCl (Reglan) 10 mg PACU ORDER PRN IV NAUSEA/VOMITING; Start 11/19/18 at 23:30; Stop 11/20/18 at 04:00 Labetalol HCl (Labetalol) 5 mg PACU ORDER PRN IV HIGH BLOOD PRESSURE; Start 11/19/18 at 23:30; Stop 11/20/18 at 04:00 Hydralazine HCl (Apresoline) 5 mg PACU ORDER PRN IV HIGH BLOOD PRESSURE; Start 11/19/18 at 23:30; Stop 11/20/18 at 04:00 Ephedrine Sulfate 5 mg PACU ORDER PRN IV BLOOD PRESSURE SUPPORT; Start 11/19/18 at 23:30; Stop 11/20/18 at 04:00 Meperidine HCl (Demerol) 25 mg PACU ORDER PRN IV .RIGORS; Start 11/19/18 at 23:30; Stop 11/20/18 at 04:00 Diphenhydramine HCl (Benadryl) 25 mg PACU ORDER PRN IV .PRURITUS; Start 11/19/18 at 23:30; Stop 11/20/18 at 04:00 ERNIE SANCHEZ MD Nov 19, 2018 23:47
[2018-11-20] VITALS (20 sets, daily range): BP systolic 116–152; BP diastolic 69–93; PULSE 73–102; RESP 13–26
[2018-11-20] MEDS ORDERED: hydrALAzine 20 MG INJ ONE (00:58)
[2018-11-20] MEDS ORDERED: ONDANSETRON 4 MG INJ ONE (01:07)
[2018-11-20] MEDS ORDERED: METOCLOPRAMIDE 10 MG INJ ONE (01:07)
[2018-11-20] MEDS ORDERED: DEXAMETHASONE 4 MG/ML 5 ML INJ ONE (01:07)
[2018-11-20] MEDS ORDERED: SUGAMMADEX SODIUM 200 MG/2 ML VIAL IV ONE (01:49)
[2018-11-20] MEDS ORDERED: KETOROLAC 30 MG INJ ONE (01:51)
[2018-11-20] MEDS ORDERED: VANCOMYCIN 1 GM (PMX) 250 ML ONE (01:53)
[2018-11-20] MEDS: D5W-0.45 NACL + KCL 20 MEQ 1,000 ML IV SCH ×4 (02:09→21:39)
--- NOTE | 2018-11-20 02:09 | OPR ---
Date/Time of Note Date/Time of Note DATE: 11/20/18 TIME: 02:02 Operative Report Free Text/Dictation Operative report Procedure Date: Nov 20, 2018 Preoperative Diagnosis Appendicitis Postoperative Diagnosis Ischemic colitis with possible appendicitis and necrotic cecum Operation/Procedure Performed Laparoscopic cecectomy and appendectomy Surgeon Ernie Morocho MD see signature line [employer] None Anesthesia Type: general Anesthesiologist: ROSY REVELES MD Estimated Blood Loss: 0 - 10 ml's Transfusion none Specimen En bloc partial cecum and appendix Grafts/Implants none Tubes/Drains None Complications none Pt Condition Post Procedure: stable Disposition: PACU Indications Patient admitted through the emergency room with vague abdominal complaints of pain mostly on the right side. The CAT scan revealed a dilated appendix but wi thout inflammatory changes surrounding I was consulted to see the patient and when I saw patient he had localized peritonitis and I recommended that he undergo laparoscopic appendectomy understanding that there may be other findings which would also be indication for exploration. The patient agreed to proceed or was called and he was brought urgently to the operating room Procedure Description Patient was brought to the operative room placed supine position general she is administered with intubation the patient prepped draped in sterile fashion a tap block was performed by anesthesia. A timeout was completed. Orogastric tube was inserted. A Veress needle in the left upper quadrant Hdz's point was inserted and insufflation delivered to maintain pneumoperitoneum 50 minutes without procedure. A small stab incision was made just above the umbilicus and a 5 mm trocar was inserted under direct visualization with a 35 her laparoscope there is new was removed and infraumbilical 5 mm trocar in the suprapubic 12 mm trocar was inserted next. The patient was placed in slight Trendelenburg and right side up position. The right lower quadrant was explored the appendix was identified it did appear to be moderately thickened and injected however there was immediately noted some omentum covering an area of what appeared to be the cecum which was ischemic and violaceous in color. When this was elevated it appeared that a portion of the cecum was in fact ischemic though not perforated. The remainder of the cecum appeared healthy. There was also the appendix itself appeared to be abnormal and injected. There was some turbid fluid surrounding this. The appendix was then elevated and a window was made in the mesoappendix and an Sunbrook stapler was used to divide the mesoappendix was felt that there was enough redundancy in the cecum that once this is ischemic purple area which span approximately 3-4 cm this was elevated and it almost seems intussuscepted into part of the cecum this was elevated to healthy borders and a Sunbrook 60 mm thick tissue cartridge was used to divide and segmental partial septectomy second application of his able to be used. The staple line was then reinforced with interrupted 3-0 silk. Inspection of the staple line appeared to have a healthy closure with the silk. The specimen bag was then inserted into the suprapubic port and the specimen of the cecum partial cecectomy and appendix were taken together. The final inspection showed good hemostasis and excessive fluid the area was irrigated and aspirated until clear. The pneumoperitoneum was allowed to escape the trochars were removed the skin incision closed with 4- 0 Monocryl and Dermabond. Patient was explained the operative retrograde room in stable condition. Sponge and needle count correct x2 ERNIE MOROCHO MD Nov 20, 2018 02:09
--- NOTE | 2018-11-20 02:25 | PAC ---
Date/Time of Note Date/Time of Note DATE: 11/20/18 TIME: 02:24 Post-Anesthesia Notes Post-Anesthesia Note Last documented vital signs Vital Signs Date Temp Pulse Resp B/P (MAP) Pulse Ox O2 O2 Flow FiO2 Time Delivery Rate 11/20/18 98.6 83 16 145/84 94 02:40 (104) 11/19/18 Room Air 14:50 Activity: WNL Respiratory function: WNL Cardiovascular function: WNL Mental status: Baseline Pain reasonably controlled: Yes Hydration appropriate: Yes Nausea/Vomiting absent: Yes ROSY REVELES MD Nov 20, 2018 02:25
[2018-11-20] MEDS ORDERED: ACETAMINOPHEN 325 MG TAB PO PRN (02:30)
[2018-11-20] MEDS ORDERED: ONDANSETRON 4 MG INJ IV PRN (02:30)
[2018-11-20] MEDS: PIPER-TAZO 3.375 GM IV (PMX) 100 ML IVPB SCH ×4 (05:20→23:38)
[2018-11-20] MEDS: metroNIDAZOLE 500 MG/NS (PMX) 100 ML IVPB SCH ×3 (06:11→22:36)
[2018-11-20] MEDS: FAMOTIDINE 20 MG INJ IV SCH ×4 (09:00→21:27)
[2018-11-20] MEDS: AMLODIPINE 10 MG TAB PO SCH (09:01)
[2018-11-20] MEDS: LISINOPRIL 20 MG TAB PO SCH (09:01)
[2018-11-20] MEDS: CITALOPRAM 20 MG TAB PO SCH (09:02)
[2018-11-20] MEDS: CIPROFLOXACIN 400MG/D5W 200 ML IVPB SCH ×2 (09:07→21:26)
--- NOTE | 2018-11-20 11:42 | PN ---
Date/Time of Note Date/Time of Note DATE: 11/20/18 TIME: 11:34 Assessment/Plan VTE Prophylaxis Risk score (from [facility] [place])>0 risk: 4 SCD applied (from [facility] [place]): Yes Pharmacological prophylaxis: NA/contraindicated Pharm contraindication: low risk/ambulating, surgical contra Lines/Catheters IV Catheter Type ([facility]): Mid Line Assessment/Plan Hospital Course SUBJECTIVE: Status post laparoscopic appendectomy OBJECTIVE: Vital signs-see below PHYSICAL EXAM: Constitutional: Well-developed, adequately built, lying in bed comfortably. Psych: nl mood/affect, no complaints Head: atraumatic, normocephalic Eyes: nl conjunctiva, nl sclera ENMT: mucosa pink and moist, nl external ears & nose Neck: non-tender, supple Respiratory: clear to auscultation, normal air movement Cardiovascular: nl pulses, regular rate and rhythm Gastrointestinal: Surgical site on abdomen intact.. No rebound tenderness. .Active bowel sounds all 4 quadrants. Musculoskeletal/extremities: nl extremities to inspection, motor strength equal bilaterally, no focal deficit. Normal pulses,no cyanosis, no edema. 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 1. Abdominal pain/RLQ pain 2/2 ischemic colitis with possible appendicitis -s/p Laparoscopic cecectomy and appendectomy=> operative note shows ischemic colitis with possible appendicitis. I will discuss this with patient surgeon Dr. Morocho regarding the need for calling a vascular consult. -Continue antibiotics and postoperative management per surgery. 2. Stable bilateral renal cyst. -Appreciate urology consultation. Will monitor. 3. Leukocytosis w/Left shift , likely concurrent with #1 -Improving. Continue antibiotics and follow-up cultures. 4. Hypertension -We will resume home antihypertensives. 5. Tobacco use. -Cessation advised 6. Psychiatric disorders. -Resume home medications DVT prophylaxis: SCDs PUD prophylaxis: Pepcid CODE STATUS: Full code Diet: Diet advancement per surgery. Disposition: s/p surgery.change admit status to inpatient. Continue current management. Follow-up surgical recommendations. Patient was seen in collaboration with Dr. Alvarez. Result Diagram: 11/20/18 0434 11/20/18 0434 Results 24hrs Laboratory Tests Test 11/19/18 13:43 11/19/18 14:11 11/19/18 23:18 11/20/18 04:34 Amylase Level 48 Lipase 84 Ethyl Alcohol Level < 10.0 H Urine Color YELLOW Urine Clarity CLEAR Urine pH 8.0 Urine Specific 1.034 H [place] Urine Ketones NEGATIVE Urine Nitrite NEGATIVE Urine Bilirubin NEGATIVE Urine Urobilinogen NEGATIVE Urine Leukocyte NEGATIVE Esterase Urine Microscopic 4 RBC Urine Microscopic 0 WBC Urine Hemoglobin 1+ H Urine Glucose NEGATIVE Urine Total Protein NEGATIVE Urine Opiates Screen Positive Urine Barbiturates Negative Urine Amphetamines Negative Screen Urine Negative Benzodiazepines Screen Urine Cocaine Screen Negative Urine Cannabinoids Negative Prothrombin Time 14.4 Prothrombin Time 1.1 Ratio INR International 1.11 Normalized Ratio Activated 34.7 Partial Thromboplast Time White Blood Count 18.1 H Red Blood Count 4.70 Hemoglobin 14.0 Hematocrit 40.6 L Mean Corpuscular 86.4 Volume Mean Corpuscular 29.8 Hemoglobin Mean Corpuscular 34.5 Hemoglobin Concent Red Cell 13.3 Distribution Width Platelet Count 232 Mean Platelet Volume 9.9 Immature 0.700 H Granulocytes % Neutrophils % 94.0 H Lymphocytes % 3.2 L Monocytes % 2.0 Eosinophils % 0.0 Basophils % 0.1 Nucleated Red Blood 0.0 Cells % Immature 0.130 H Granulocytes # Neutrophils # 17.0 H Lymphocytes # 0.6 L Monocytes # 0.4 Eosinophils # 0.0 Basophils # 0.0 Nucleated Red Blood 0.0 Cells # Sodium Level 136 Potassium Level 3.5 Chloride Level 104 Carbon Dioxide Level 23 Anion Gap 9 # Blood Urea Nitrogen 9 Creatinine 0.65 Est Glomerular > 60 Filtrat Rate mL/min Glucose Level 169 Hemoglobin A1c 5.3 Calcium Level 9.1 Phosphorus Level 1.1 L Magnesium Level 1.8 Total Bilirubin 0.7 Direct Bilirubin 0.00 Indirect Bilirubin 0.7 Aspartate Amino 16 Transf (AST/SGOT) Alanine 13 Aminotransferase (AL T/SGPT) Alkaline Phosphatase 63 Total Protein 6.9 # Albumin 3.9 Globulin 3.00 Albumin/Globulin 1.30 Ratio Triglycerides Level 67 Cholesterol Level 195 LDL Cholesterol, 136 Calculated HDL Cholesterol 46 Cholesterol/HDL 4.2 Ratio Exam/Review of Systems Exam Vitals Vital Signs Date Temp Pulse Resp B/P (MAP) Pulse Ox O2 O2 Flow FiO2 Time Delivery Rate 11/20/18 98.1 82 17 147/84 98 Room Air 08:49 (105) 11/20/18 10.0 02:21 Intake and Output 11/19/18 11/19/18 11/20/18 1515:00 23:00 07:00 IntakeIntake Total 1000 ml 1850 ml OutputOutput Total 757 ml BalanceBalance 1000 ml 1093 ml Results Results 24hrs Laboratory Tests Test 11/19/18 13:43 11/19/18 14:11 11/19/18 23:18 11/20/18 04:34 Amylase Level 48 Lipase 84 Ethyl Alcohol Level < 10.0 H Urine Color YELLOW Urine Clarity CLEAR Urine pH 8.0 Urine Specific 1.034 H [place] Urine Ketones NEGATIVE Urine Nitrite NEGATIVE Urine Bilirubin NEGATIVE Urine Urobilinogen NEGATIVE Urine Leukocyte NEGATIVE Esterase Urine Microscopic 4 RBC Urine Microscopic 0 WBC Urine Hemoglobin 1+ H Urine Glucose NEGATIVE Urine Total Protein NEGATIVE Urine Opiates Screen Positive Urine Barbiturates Negative Urine Amphetamines Negative Screen Urine Negative Benzodiazepines Screen Urine Cocaine Screen Negative Urine Cannabinoids Negative Prothrombin Time 14.4 Prothrombin Time 1.1 Ratio INR International 1.11 Normalized Ratio Activated 34.7 Partial Thromboplast Time White Blood Count 18.1 H Red Blood Count 4.70 Hemoglobin 14.0 Hematocrit 40.6 L Mean Corpuscular 86.4 Volume Mean Corpuscular 29.8 Hemoglobin Mean Corpuscular 34.5 Hemoglobin Concent Red Cell 13.3 Distribution Width Platelet Count 232 Mean Platelet Volume 9.9 Immature 0.700 H Granulocytes % Neutrophils % 94.0 H Lymphocytes % 3.2 L Monocytes % 2.0 Eosinophils % 0.0 Basophils % 0.1 Nucleated Red Blood 0.0 Cells % Immature 0.130 H Granulocytes # Neutrophils # 17.0 H Lymphocytes # 0.6 L Monocytes # 0.4 Eosinophils # 0.0 Basophils # 0.0 Nucleated Red Blood 0.0 Cells # Sodium Level 136 Potassium Level 3.5 Chloride Level 104 Carbon Dioxide Level 23 Anion Gap 9 # Blood Urea Nitrogen 9 Creatinine 0.65 Est Glomerular > 60 Filtrat Rate mL/min Glucose Level 169 Hemoglobin A1c 5.3 Calcium Level 9.1 Phosphorus Level 1.1 L Magnesium Level 1.8 Total Bilirubin 0.7 Direct Bilirubin 0.00 Indirect Bilirubin 0.7 Aspartate Amino 16 Transf (AST/SGOT) Alanine 13 Aminotransferase (AL T/SGPT) Alkaline Phosphatase 63 Total Protein 6.9 # Albumin 3.9 Globulin 3.00 Albumin/Globulin 1.30 Ratio Triglycerides Level 67 Cholesterol Level 195 LDL Cholesterol, 136 Calculated HDL Cholesterol 46 Cholesterol/HDL 4.2 Ratio Medications Medication Current Medications IV Flush (NS 3 ml) 3 ml PER PROTOCOL IV ; Start 11/19/18 at 10:30 Ondansetron HCl (Zofran Inj) 4 mg Q6H PRN IV NAUSEA/VOMITING; Start 11/19/18 at 10:30 Acetaminophen (Tylenol Supp) 650 mg Q6H PRN [place] .PAIN 1-3 OR TEMP; Start 11/19/18 at 10:30 Oxycodone/ Acetaminophen (Percocet (5/ 325)) 2 tab Q6H PRN PO .SEVERE PAIN 7- 10; Start 11/19/18 at 10:30 Famotidine (Pepcid Iv) 20 mg Q12 IV Last administered on 11/20/18 09:01; Admin Dose 20 MG; Start 11/19/18 at 21:00 Hydralazine HCl (Apresoline) 10 mg Q6H PRN IV SBP>160; Start 11/19/18 at 10:30 Amlodipine Besylate (Norvasc) 10 mg DAILY PO Last administered on 11/20/18 09:01; Admin Dose 10 MG; Start 11/19/18 at 12:00 Carvedilol (Coreg) 6.25 mg BID PO Last administered on 11/20/18 09:02; Admin Dose 6.25 MG; Start 11/19/18 at 12:00 Citalopram Hydrobromide (Celexa) 10 mg QAM PO Last administered on 11/20/18 09:02; Admin Dose 10 MG; Start 11/19/18 at 12:00 Hydroxyzine HCl (Atarax) 10 mg QAM PRN PO ITCHING; Start 11/19/18 at 10:30 Lisinopril (Zestril) 40 mg DAILY PO Last administered on 11/20/18 09:01; Admin Dose 40 MG; Start 11/19/18 at 12:00 Ciprofloxacin/ Dextrose 200 ml @ 200 mls/hr Q12 IVPB Last administered on 11/20/18 09:07; Admin Dose 200 MLS/HR; Start 11/19/18 at 13:00 Metronidazole 100 ml @ 100 mls/hr Q8 IVPB Last administered on 11/20/18at 06:11; Admin Dose 100 MLS/HR; Start 11/19/18 at 14:00 Piperacillin Sod/ Tazobactam Sod 100 ml @ 200 mls/hr Q6 IVPB Last administered on 11/20/18at 05:20; Admin Dose 200 MLS/HR; Start 11/20/18 at 06:00 Ondansetron HCl (Zofran Inj) 4 mg Q6H PRN IV NAUSEA AND/OR VOMITING; Start at 02:30 Acetaminophen (Tylenol Tab) 650 mg Q6H PRN PO PAIN LEVEL 1-3 OR FEVER; Start 11/20/18 at 02:30 Ketorolac Tromethamine (Toradol) 30 mg Q6H PRN IV PAIN; Start 11/20/18 at 02:30; Stop 11/23/18 at 02:29 Potassium Chloride/Dextrose/ Sod Cl 1,000 ml @ 100 mls/hr Q10H IV Last administered on 11/20/18at 03:46; Admin Dose 100 MLS/HR; Start 11/20/18 at 02:09 Famotidine (Pepcid Iv) 20 mg Q12 IV ; Start 11/20/18 at 09:00 ODALYS MADDOX NP Nov 20, 2018 11:42
[2018-11-20] MEDS: KETOROLAC 30 MG INJ IV PRN (14:31)
[2018-11-21 02:00] VITALS: BP 125/70; PULSE 72; RESP 17
[2018-11-21] MEDS: KETOROLAC 30 MG INJ IV PRN (05:05)
[2018-11-21] MEDS: PIPER-TAZO 3.375 GM IV (PMX) 100 ML IVPB SCH (05:09)
[2018-11-21] MEDS: metroNIDAZOLE 500 MG/NS (PMX) 100 ML IVPB SCH (06:00)
--- NOTE | 2018-11-21 11:09 | DS ---
Date/Time of Note Date/Time of Note DATE: 11/21/18 TIME: 11:06 Discharge Summary Admission/Discharge Info Admit Date/Time Nov 20, 2018 at 11:51 Discharge Date/Time Nov 21, 2018 at 06:40 (against medical advice) Discharge Diagnosis 1. Appendicitis with possible ischemic colitis. Status post laparoscopic appendectomy and cecectomy 2. Benign Renal cyst. 3. Leukocytosis w/Left shift , likely concurrent with #1 4. Hypertension 5. Tobacco use. 6. History of IV drug abuse,?on methadone 7. Psychiatric disorders. Consults Dr. Morocho, surgery , urology Procedures 11/19/2018. CT abdomen and pelvis. IMPRESSION: 1. The appendix measures 9 mm in maximal transverse dimension. There are no adjacent inflammatory changes or appendicoliths. 2. Nonspecific small amount of free fluid located in the left half of the pelvis. 3. Bilateral renal cysts. Please note that in the absence of intravenous contrast the study does not evaluate the patency of the vasculature. Hx of Present Illness 63-year-old male with a history of hypertension, psychiatric disorders, tobacco use, pancreatitis, documented heroine abuse in the past although patient now refuse it, presented to the emergency room with sudden onset of right lower quadrant/lower and periumbilical abdominal pain started overnight. Patient did not have any fevers, chills, nausea, vomiting, diarrhea, constipation, loss of appetite, chest pain, palpitation, dizziness, or other constitutional symptoms. He also reported mild headache. This patient was known to our hospitalist group in 2017 where he was admitted with pancreatitis, acute kidney injury and patient went AGAINST MEDICAL ADVICE at that time as he insisted to smoke. In ER, initial labs showed white count 19,500. Otherwise unremarkable. Stable vital signs. No fevers. A CT abdomen and pelvis showed 9 mm in maximal transverse dimension. There was evidence of bilateral renal cyst. In ER, patient was given Zosyn, IV fluids and Dilaudid and a surgical consult was called for possible concern for appendicitis. Hospital Course 63-year-old male with tobacco use, documented history of IV heroin abuse in the past, hypertension, pancreatitis, psych disorders came into the emergency room with sudden onset of lower abdominal/RLQ pain started overnight, also found to have leukocytosis. Patient's clinical symptoms were consistent with a possible appendicitis, with CT showed dilation of appendix 9 mm although no significant inflammatory changes noted in CT. As such, surgery recommendation was to have patient undergo laparoscopic appendectomy. Patient was given empiric antimicrobials. Patient was also evaluated by urologist for incidental finding of renal cyst which had increased in size from prior for which urology recommended observation as this is unlikely causing any symptoms and are appearing benign.. Patient underwent laparoscopic appendectomy and cecectomy on 11/19/2018. Patient did tolerate procedure well. Postoperatively, he was started on a diet which he was able to tolerate. He continued to have intermittent pain. Leukocytosis was improving. As per recommendation from surgery was to keep patient another 24-48 hours as there was evidence of necrotic areas of:. However, patient went AGAINST MEDICAL ADVICE as he wants to be on his methadone dose. We have assured that he will contact his methadone clinic and will get appropriate dosing and will start, however, patient did not want to wait for these and left AGAINST MEDICAL ADVICE. Despite our efforts, patient had decided to leave AGAINST MEDICAL ADVICE. Patient has normal mental status and full decisional capacity. Patient understood her condition and the risk of leaving AMA, including but not limited to permanent disability, etc., and had an opportunity to ask questions about own medical condition. The patient has been informed that the paient may return for care anytime and has been referred to primary care provider for follow-up as soon as possible. Please note that on day of discharge, patient had a white count 16,100. Since he left AGAINST MEDICAL ADVICE, no prescriptions including antibiotics were given. Case discussed with . Home Meds Active Scripts Albuterol Sulfate* (Ventolin HFA*) 18 Gm Hfa.aer.ad, 2 PUFF INHALATION Q4H PRN for WHEEZING, #1 INHALER Prov:BRYANT JAMES MD 08/16/18 Reported Medications Hydroxyzine Hcl* (Hydroxyzine Hcl*) 10 Mg Tablet, 10 MG PO QAM PRN for ITCHING, #30 TAB 11/19/18 Citalopram Hydrobromide* (Citalopram Hydrobromide*) 10 Mg Tablet, 10 MG PO QAM for 30 Days, #30 11/19/18 Carvedilol* (Carvedilol*) 6.25 Mg Tablet, 6.25 MG PO BID, #60 TAB 05/04/18 Amlodipine Besylate* (Amlodipine Besylate*) 10 Mg Tablet, 10 MG PO DAILY, #30 TAB 05/04/18 Lisinopril* (Lisinopril*) 40 Mg Tablet, 40 MG PO DAILY, #30 TAB 05/04/18 Discontinued Scripts Prednisone* (Prednisone*) 20 Mg Tab, 60 MG PO DAILY for 5 Days, TAB Prov:BRYANT JAMES MD 08/16/18 Azithromycin* (Azithromycin*) 250 Mg Tablet, 250 MG PO DAILY, #4 TAB Prov:BRYANT JAMES MD 08/16/18 Primary Care Provider [facility] [place] Pending Labs Laboratory Tests Test 11/20/18 16:00 11/21/18 04:29 Urine Color YELLOW (YELLOW) Urine Clarity CLEAR (CLEAR) Urine pH 7.0 (5.0-9.0) Urine Specific [place] 1.009 (1.003-1.030) Urine Ketones NEGATIVE mg/dL (NEGATIVE) Urine Nitrite NEGATIVE mg/dL (NEGATIVE) Urine Bilirubin NEGATIVE mg/dL (NEGATIVE) Urine Urobilinogen NEGATIVE mg/dL (NEGATIVE) Urine Leukocyte Esterase NEGATIVE Donna/ul Urine Hemoglobin NEGATIVE mg/dL (NEGATIVE) Urine Glucose 1+ mg/dL (NEGATIVE) Urine Total Protein NEGATIVE mg/dl (NEGATIVE) White Blood Count 16.4 10^3/ul (4.8-10.8) Red Blood Count 4.33 10^6/ul (4.70-6.10) Hemoglobin 12.8 g/dl (14.0-18.0) Hematocrit 37.5 % (42.0-52.0) Mean Corpuscular Volume 86.6 fl (82.0-101.0) Mean Corpuscular 29.6 pg (29.0-33.0) Hemoglobin Mean Corpuscular 34.1 g/dl (32.0-37.0) Hemoglobin Concent Red Cell Distribution 13.4 % (11.5-14.5) Width Platelet Count 238 10^3/UL (140-415) Mean Platelet Volume 10.3 fl (7.4-10.4) Immature Granulocytes % 0.500 % (0.001-0.429) Neutrophils % 79.0 % (39.0-77.0) Lymphocytes % 9.9 % (15.0-51.0) Monocytes % 10.5 % (0.0-11.0) Eosinophils % 0.0 % (0.0-7.0) Basophils % 0.1 % (0.0-2.0) Nucleated Red Blood Cells 0.0 /100WBC (0.0-0.0) % Immature Granulocytes # 0.090 10^3/ul (0.0-0.031) Neutrophils # 13.0 10^3/ul (1.6-7.5) Lymphocytes # 1.6 10^3/ul (0.8-2.9) Monocytes # 1.7 10^3/ul (0.3-0.9) Eosinophils # 0.0 10^3/ul (0.0-0.5) Basophils # 0.0 10^3/ul (0.0-0.1) Nucleated Red Blood Cells 0.0 10^3/ul (0.0-0.0) # Sodium Level 141 mmol/L (135-144) Potassium Level 3.5 mmol/L (3.5-5.1) Chloride Level 109 mmol/L (97-110) Carbon Dioxide Level 23 mmol/L (21-31) Anion Gap 9 (5-13) Blood Urea Nitrogen 9 mg/dl (7-20) Creatinine 0.69 mg/dl (0.61-1.24) Est Glomerular Filtrat > 60 mL/min (>60) Rate mL/min Glucose Level 114 mg/dl (70-220) Calcium Level 9.0 mg/dl (8.4-10.2) ODALYS MADDOX NP Nov 21, 2018 11:09
--- NOTE | 2018-11-22 15:01 | RADRPT ---
Vent Rate: 83 bpm RR Interval: 0 msec WA Interval: 162 msec QRS Duration: 98 msec QT Interval: 378 msec QTC Interval: 444 msec P-R-T Cut Off: 69 - -57 - -11 degrees Sinus rhythm with premature ventricular complexes or fusion complexes Left anterior fascicular block Cannot rule out Inferior infarct (masked by fascicular block?) , age undetermined Abnormal ECG Electronically Signed By: Cuong Cordova
== END 2018-11-21 06:40 | disposition left against medical advice (07) | DRG 330 ==
LOC: E/R 01:22 → PP2 09:19 → OBSVTOIN 11-20 11:51
PROVIDERS: ADMIT Internal Medicine; ATTEND Internal Medicine
PROC: 0DTJ4ZZ Resection of Appendix, Percutaneous Endoscopic Approach (ICD-10-PCS; 2018-11-20)
PROC: 0DBH4ZZ Excision of Cecum, Percutaneous Endoscopic Approach (ICD-10-PCS; principal; 2018-11-20 00:15)
DX: K55.1 Chronic vascular disorders of intestine (principal); K35.30 Acute appendicitis with localized peritonitis, without perforation or gangrene; Z72.0 Tobacco use; Z79.899 Other long term (current) drug therapy; F11.11 Opioid abuse, in remission; I10 Essential (primary) hypertension
CPT/HCPCS: 36415; 71045; 74176; 74181; 80048; 80053; 80061; 80307; 81001; 81003; 82150; 83036; 83690; 83735; 84100; 85025; 85610; 85730; 87040; 87086; 88304; 93005; 96374; 96375; G0378; J0360; J0744; J1100; J1170; J1885; J2250; J2405; J2543; J2765; J2795; J3010; J3370; J3480; J7030; Q9967

== ENCOUNTER 2019-02-24 09:19 | Emergency (ER) | payer MEDICARE, OTHER ==
[~2019-02-24] VITALS: Ht 165.1 cm; Wt 67.9 kg
[~2019-02-24 09:19] MED LIST changes: -AZIT250T13 PO; +CITA10TA5 PO; +HYDR-3029 PO; -PRED20TA PO
[2019-02-24 09:25] VITALS: Ht 165.1 cm; Wt 67.9 kg
[2019-02-24] MEDS ORDERED: KETOROLAC 15 MG INJ IV STA (11:32)
[2019-02-24] MEDS ORDERED: SOD CHLORIDE 0.9% 500 ML IV STA (11:32)
[2019-02-24] MEDS ORDERED: IPRATROPIUM (NEB) 0.5 MG/2.5 ML AMP INH STA (11:32)
[2019-02-24] MEDS ORDERED: METHYLPREDNISOLONE 125 MG INJ IV STA (11:32)
[2019-02-24] MEDS ORDERED: ALBUTEROL 0.5% (NEB) 2.5 MG/0.5 ML AMP INH STA (11:32)
[2019-02-24] MEDS ORDERED: AMLO-147 PO (11:40)
[2019-02-24] MEDS ORDERED: ASPI-817 PO (11:41)
[2019-02-24] MEDS ORDERED: LISI40TA3 PO (11:41)
[2019-02-24] MEDS ORDERED: CARV6.2579 PO (11:41)
[2019-02-24] MEDS ORDERED: CITA20TA8 PO (11:43)
[2019-02-24] MEDS ORDERED: HYDR-3029 PO (11:43)
[2019-02-24] MEDS ORDERED: LEVOFLOXACIN 750MG/D5W (PMX) 150 ML IVPB ONE (13:30)
--- NOTE | 2019-02-24 13:39 | ERD ---
ER Documentation Chief Complaint Chief Complaint SOB SINCE 4AM, INTERMITTENT CP, NOT NOW. WHEEZING. + SMOKER. HPI 63-year-old man states he has a history of asthma complains of couple days of cough, chest pain, tactile fevers, chills, wheezing. He also complains of chest congestion. He continues to use tobacco smoke. Patient denies exertional chest pain, the pain is sharp and precipitated by coughing. He denies recent travel or antibiotic use, no calf or leg swelling, no abdominal pain, no vomiting or diarrhea ROS All systems reviewed and are negative except as per history of present illness. Medications Home Meds Reported Medications Citalopram Hydrobromide* (Citalopram Hydrobromide*) 20 Mg Tablet, 20 MG PO DAILY, #30 TAB 02/24/19 Hydroxyzine Hcl* (Hydroxyzine Hcl*) 10 Mg Tablet, 10 MG PO Q8H PRN for ITCHING, #30 TAB 02/24/19 Aspirin* (Aspirin* EC) 81 Mg Tablet.dr, 81 MG PO DAILY, TAB 02/24/19 Carvedilol* (Carvedilol*) 6.25 Mg Tablet, 6.25 MG PO BID, #60 TAB 02/24/19 Lisinopril* (Lisinopril*) 40 Mg Tablet, 40 MG PO DAILY, #30 TAB 02/24/19 Amlodipine Besylate* (Amlodipine Besylate*) 10 Mg Tablet, 10 MG PO DAILY, #30 TAB 02/24/19 Discontinued Reported Medications Hydroxyzine Hcl* (Hydroxyzine Hcl*) 10 Mg Tablet, 10 MG PO QAM PRN for ITCHING, #30 TAB 11/19/18 Citalopram Hydrobromide* (Citalopram Hydrobromide*) 10 Mg Tablet, 10 MG PO QAM for 30 Days, #30 11/19/18 Carvedilol* (Carvedilol*) 6.25 Mg Tablet, 6.25 MG PO BID, #60 TAB 05/04/18 Amlodipine Besylate* (Amlodipine Besylate*) 10 Mg Tablet, 10 MG PO DAILY, #30 TAB 05/04/18 Lisinopril* (Lisinopril*) 40 Mg Tablet, 40 MG PO DAILY, #30 TAB 05/04/18 Discontinued Scripts Albuterol Sulfate* (Ventolin HFA*) 18 Gm Hfa.aer.ad, 2 PUFF INHALATION Q4H PRN for WHEEZING, #1 INHALER Prov:BRYANT JAMES MD 08/16/18 Allergies Allergies: Coded Allergies: No Known Allergy (Unverified , 02/24/19) PMhx/Soc Asthma History of Surgery: Yes (appendix) Anesthesia Reaction: No Hx Neurological Disorder: No Hx Respiratory Disorders: No Hx Cardiac Disorders: Yes (HTN) Hx Psychiatric Problems: Yes (depression, anxiety) Hx Miscellaneous Medical Probl: No Hx Alcohol Use: No Hx Substance Use: No (patient denies) Hx Tobacco Use: Yes (1/2 pack per day) Smoking Status: Current every day smoker FmHx Family History: No diabetes Physical Exam Vitals Vital Signs Date Temp Pulse Resp B/P (MAP) Pulse Ox O2 O2 Flow FiO2 Time Delivery Rate 02/24/19 57 20 157/97 97 Room Air 13:17 (117) 02/24/19 78 20 96 21 12:00 02/24/19 97.5 63 24 148/84 93 09:25 (105) Physical Exam GENERAL: Well-developed, well-nourished, dyspneic, afebrile HEENT: Moist mucous membranes, pink conjunctiva, no cervical spine tenderness or step-off deformities, no goiter, no jaundice or icterus, extraocular movements intact without pain. No submandibular induration, and no pharyngeal erythema NEURO: Alert and oriented 3, cranial nerves II through XII intact bilaterally, pupils equal round reactive to light, no focal deficits or facial asymmetry, sensation intact distally Strength 5/5 in upper and lower extremities bilaterally CARDIAC: Regular rate and rhythm, no murmurs rubs or gallops LUNGS: Dense wheezing bilaterally ABDOMEN: Soft nontender, no guarding, no rigidity, no rebound, no psoas sign no obturator sign. Normoactive bowel sounds SKIN: Warm and dry to touch, no abrasions, contusions, or hematomas, no lacerations, no ecchymosis, no target lesions, and without ulcers EXTREMITIES: No clubbing cyanosis or edema, calves are bilaterally symmetrical, no Homans sign, no popliteal cord sign. Distal pulses equal and bilateral PSYCH: Normal affect without agitation or irritability Result Diagram: 02/24/19 1132 02/24/19 1211 Results 24 hrs Laboratory Tests Test 02/24/19 11:32 02/24/19 12:11 White Blood Count 10.3 10^3/ul Red Blood Count 5.32 10^6/ul Hemoglobin 15.8 g/dl Hematocrit 46.5 % Mean Corpuscular Volume 87.4 fl Mean Corpuscular Hemoglobin 29.7 pg Mean Corpuscular Hemoglobin Concent 34.0 g/dl Red Cell Distribution Width 13.4 % Platelet Count 317 10^3/UL Mean Platelet Volume 9.4 fl Immature Granulocytes % 0.300 % Neutrophils % 64.9 % Lymphocytes % 19.7 % Monocytes % 7.5 % Eosinophils % 7.4 % Basophils % 0.2 % Nucleated Red Blood Cells % 0.0 /100WBC Immature Granulocytes # 0.030 10^3/ul Neutrophils # 6.7 10^3/ul Lymphocytes # 2.0 10^3/ul Monocytes # 0.8 10^3/ul Eosinophils # 0.8 10^3/ul Basophils # 0.0 10^3/ul Nucleated Red Blood Cells # 0.0 10^3/ul Sodium Level 145 mmol/L Potassium Level 4.6 mmol/L Chloride Level 105 mmol/L Carbon Dioxide Level 27 mmol/L Anion Gap 13 Blood Urea Nitrogen 9 mg/dl Creatinine 0.72 mg/dl Est Glomerular Filtrat Rate mL/min > 60 mL/min Glucose Level 97 mg/dl Calcium Level 10.0 mg/dl Total Bilirubin 0.6 mg/dl Direct Bilirubin 0.00 mg/dl Indirect Bilirubin 0.6 mg/dl Aspartate Amino Transf (AST/SGOT) 23 IU/L Alanine Aminotransferase (ALT/SGPT) 14 IU/L Alkaline Phosphatase 87 IU/L Troponin I < 0.012 ng/ml Total Protein 8.6 g/dl Albumin 4.9 g/dl Globulin 3.70 g/dl Albumin/Globulin Ratio 1.32 Lipase 64 U/L Current Medications Medications Dose Sig/Milena Start Time Status Last (Trade) Ordered Route PRN Stop Time Admin Dose Reason Admin Albuterol 10 mg ONCE STAT 02/24/19 DC 02/24/19 (Proventil INH 11:32 11:59 0.5% (Neb)) 02/24/19 11:34 Ipratropium 1 mg ONCE STAT 02/24/19 DC 02/24/19 [place] INH 11:32 11:59 (Atrovent 02/24/19 11:34 0.02% (Neb)) 125 mg ONCE STAT 02/24/19 DC 02/24/19 Methylprednis IV 11:32 12:45 olone Sodium 02/24/19 11:34 Succinate (Solu-Medrol) Sodium 500 ml @ Q1H STAT 02/24/19 DC 02/24/19 Chloride 500 mls/hr IV 11:32 12:46 02/24/19 12:31 Ketorolac 15 mg ONCE STAT 02/24/19 DC 02/24/19 Tromethamine IV 11:32 12:45 (Toradol) 02/24/19 11:34 150 ml @ ONCE ONCE 02/24/19 Levofloxacin/ 100 mls/hr IVPB 13:30 Dextrose 02/24/19 14:59 Procedures/MDM IV line was established patient was placed on hospital monitor rhythm strip revealed a sinus rhythm at about 60 bpm with upright P and T waves. Patient was afebrile Chest X-ray 1V Interpreted by me: Soft Tissue: No acute abnormalities Bones: No acute abnormalities Mediastinum/Cardiac Silhouette/Lungs: No acute abnormalities EKG performed, read by me: 60 bpm, normal sinus rhythm, normal axis, no acute ST segment changes, narrow QRS complex, with good R-wave progression in precordial leads. I administered 500 mL normal saline IV, Toradol 15 mg IV, albuterol 10 mg via ne bulizer, ipratropium 1 mg via nebulizer, methylprednisolone 125 mg IV x1 CBC and electrolytes are normal, liver function tests were normal, troponin was negative Patient has continued tachypnea, wheezing, and dyspnea on exertion. He states medications did help him but the patient remains symptomatic he will be admitted to telemetry for continued medical management and bronchodilator therapy. Blood cultures were ordered results are pending I will follow-up, I ordered levofloxacin 750 mg IV x1. Departure Diagnosis: Primary Impression: Acute bronchitis Bronchitis organism: unspecified organism Qualified Codes: J20.9 - Acute bronchitis, unspecified Additional Impression: Acute asthma Condition: PALOMO Saldivar MD Feb 24, 2019 13:39
[2019-02-24 15:10] VITALS: BP 149/91; PULSE 79; RESP 20
== END 2019-02-24 15:40 | disposition left against medical advice (07) ==
LOC: E/R 09:19 → CANBEDREQ 17:16
DX: J20.9 Acute bronchitis, unspecified (principal); I10 Essential (primary) hypertension; F17.210 Nicotine dependence, cigarettes, uncomplicated; J45.901 Unspecified asthma with (acute) exacerbation; Z79.82 Long term (current) use of aspirin
CPT/HCPCS: 71045; 80053; 83690; 84484; 85025; 93005; 94664; 96374; 96375; 99285; J1885; J1956; J2930; J7040

== ENCOUNTER 2019-03-02 21:59 | Inpatient (IN) | payer MEDICARE, OTHER ==
[~2019-03-02] VITALS: Ht 167.6 cm; Wt 67.0 kg
[~2019-03-02 21:59] MED LIST changes: -ALBU18HF INHALATION; +ASPI-817 PO; -CITA10TA5 PO; +CITA20TA8 PO
[2019-03-02] MEDS ORDERED: METHYLPREDNISOLONE 125 MG INJ IV STA (22:04)
[2019-03-02] MEDS ORDERED: ALBUTEROL 0.5% (NEB) 2.5 MG/0.5 ML AMP INH STA (22:04)
[2019-03-02] MEDS ORDERED: IPRATROPIUM (NEB) 0.5 MG/2.5 ML AMP INH STA (22:04)
--- NOTE | 2019-03-02 23:14 | ERD ---
ER Documentation Chief Complaint Chief Complaint BIB RA for sudden onset SOB w/ CP HPI This is a 63-year-old male with a past medical history of hypertension, hyperlipidemia, heart failure, COPD who is presenting with sudden onset sh ortness of breath and wheezing this evening. The patient endorses chest tightness but no chest pain to me at this time. He does not report any alleviating or exacerbating factors. The patient reports that his symptoms started suddenly, and he does not know what could have caused the symptoms. He has not been diaphoretic. He has not been lightheaded or dizzy. He denies nausea or vomiting. The patient did call an ambulance to transport him to the emergency department. When the ambulance arrived, the patient reports that he was hypoxic on room air. According to past medical records, the patient does have a history of drug use. Currently, he endorses tobacco use, but he denies illicit drug use. The patient denies feeling sick recently. The patient denies fever or chills. The patient has had no headache or vision changes. The patient does not endorse neck or back pain. The patient denies abdominal pain. The patient denies changes to bowel movements or urination. The patient has had no focal deficits. The patient has had no weakness or numbness or tingling to the face or extremities. ROS All systems reviewed and are negative except as per history of present illness. Medications Home Meds Reported Medications Citalopram Hydrobromide* (Citalopram Hydrobromide*) 20 Mg Tablet, 20 MG PO DAILY, #30 TAB 02/24/19 Hydroxyzine Hcl* (Hydroxyzine Hcl*) 10 Mg Tablet, 10 MG PO Q8H PRN for ITCHING, #30 TAB 02/24/19 Aspirin* (Aspirin* EC) 81 Mg Tablet.dr, 81 MG PO DAILY, TAB 02/24/19 Carvedilol* (Carvedilol*) 6.25 Mg Tablet, 6.25 MG PO BID, #60 TAB 02/24/19 Lisinopril* (Lisinopril*) 40 Mg Tablet, 40 MG PO DAILY, #30 TAB 02/24/19 Amlodipine Besylate* (Amlodipine Besylate*) 10 Mg Tablet, 10 MG PO DAILY, #30 TAB 02/24/19 Discontinued Reported Medications Hydroxyzine Hcl* (Hydroxyzine Hcl*) 10 Mg Tablet, 10 MG PO QAM PRN for ITCHING, #30 TAB 11/19/18 Citalopram Hydrobromide* (Citalopram Hydrobromide*) 10 Mg Tablet, 10 MG PO QAM for 30 Days, #30 11/19/18 Carvedilol* (Carvedilol*) 6.25 Mg Tablet, 6.25 MG PO BID, #60 TAB 05/04/18 Amlodipine Besylate* (Amlodipine Besylate*) 10 Mg Tablet, 10 MG PO DAILY, #30 TAB 05/04/18 Lisinopril* (Lisinopril*) 40 Mg Tablet, 40 MG PO DAILY, #30 TAB 05/04/18 Discontinued Scripts Albuterol Sulfate* (Ventolin HFA*) 18 Gm Hfa.aer.ad, 2 PUFF INHALATION Q4H PRN for WHEEZING, #1 INHALER Prov:BRYANT JAMES MD 08/16/18 Allergies Allergies: Coded Allergies: No Known Allergy (Unverified , 02/24/19) PMhx/Soc History of Surgery: Yes (appendix) Anesthesia Reaction: No Hx Neurological Disorder: No Hx Respiratory Disorders: Yes (COPD) Hx Cardiac Disorders: Yes (HTN) Hx Psychiatric Problems: Yes (depression, anxiety) Hx Miscellaneous Medical Probl: No Hx Alcohol Use: No Hx Substance Use: No (patient denies) Hx Tobacco Use: Yes (1/2 pack per day) Smoking Status: Current every day smoker FmHx Family History: No diabetes Physical Exam Vitals Vital Signs Date Temp Pulse Resp B/P (MAP) Pulse Ox O2 O2 Flow FiO2 Time Delivery Rate 03/02/19 89 20 89 21 22:12 03/02/19 Nasal 22:11 Cannula 03/02/19 98.1 89 17 132/97 99 22:05 (109) Physical Exam Const: No acute distress Head: Atraumatic Eyes: Normal Conjunctiva ENT: Normal External Ears, Nose and Mouth. Neck: Full range of motion. No meningismus. Resp: Respiratory distress, tripoding, diffuse inspiratory and expiratory wheezes. Cardio: Regular rate and rhythm, no murmurs Abd: Soft, non tender, non distended. Normal bowel sounds Skin: No petechiae or rashes Back: No midline or flank tenderness Ext: No cyanosis, or edema Neur: Awake and alert Psych: Normal Mood and Affect Result Diagram: 03/02/19222103/02/192221 Results 24 hrs Laboratory Tests Test 03/02/19 22:21 03/02/19 22:22 POC Venous Lactate 1.5 mmol/L White Blood Count 12.4 10^3/ul Red Blood Count 5.24 10^6/ul Hemoglobin 15.7 g/dl Hematocrit 45.4 % Mean Corpuscular Volume 86.6 fl Mean Corpuscular Hemoglobin 30.0 pg Mean Corpuscular Hemoglobin Concent 34.6 g/dl Red Cell Distribution Width 13.6 % Platelet Count 329 10^3/UL Mean Platelet Volume 9.3 fl Immature Granulocytes % 0.900 % Neutrophils % 49.5 % Lymphocytes % 26.3 % Monocytes % 11.1 % Eosinophils % 12.0 % Basophils % 0.2 % Nucleated Red Blood Cells % 0.0 /100WBC Immature Granulocytes # 0.110 10^3/ul Neutrophils # 6.2 10^3/ul Lymphocytes # 3.3 10^3/ul Monocytes # 1.4 10^3/ul Eosinophils # 1.5 10^3/ul Basophils # 0.0 10^3/ul Nucleated Red Blood Cells # 0.0 10^3/ul Prothrombin Time 13.3 Sec Prothrombin Time Ratio 1.0 INR International Normalized Ratio 1.00 Sodium Level 140 mmol/L Potassium Level 3.7 mmol/L Chloride Level 102 mmol/L Carbon Dioxide Level 26 mmol/L Anion Gap 12 Blood Urea Nitrogen 19 mg/dl Creatinine 0.94 mg/dl Est Glomerular Filtrat Rate mL/min > 60 mL/min Glucose Level 102 mg/dl Calcium Level 9.8 mg/dl Troponin I < 0.012 ng/ml Current Medications Medications Dose Sig/Milena Start Time Status Last (Trade) Ordered Route PRN Stop Time Admin Dose Reason Admin Ipratropium 1.5 mg ONCE STAT 03/02/19 DC 03/02/19 [place] [facility] 22:04 22:12 (Atrovent 03/02/19 22:07 0.02% (Neb)) Albuterol 15 mg ONCE STAT 03/02/19 DC 03/02/19 (Proventil INH 22:04 22:12 0.5% (Neb)) 03/02/19 22:07 125 mg ONCE STAT 03/02/19 DC 03/02/19 Methylprednis IV 22:04 22:26 olone Sodium 03/02/19 22:07 Succinate (Solu-Medrol) Procedures/MDM MDM The patient's presentation warrants further investigation. Previous medical records, if available, were reviewed. LABS The patient's laboratory testing was obtained and reviewed. No emergent treatment was required unless described below. CBC: Leukocytosis without shift, which I suspect is reactive low clinical suspicion for a systemic infection. No E/o severe anemia or thrombocytopenia Chemistry: No E/o severe acidosis or alkalosis or renal failure or diabetic ketoacidosis PT/INR: No E/o significant coagulopathy Lactate: No E/o severe sepsis Troponin: No E/o acute ischemia Tox: UDS is pending EKG EKG read by me: Rate/Rhythm: Regular rate and rhythm at a rate of 89 bpm Intervals: Normal [place]: Left axis Impression: Poor R wave progression indicating likely old anterior lateral ischemia, without evidence of acute ischemia or arrhythmia IMAGING Imaging and Radiology interpretation reviewed. CXR FINDINGS: The trachea is midline. The cardiac silhouette and pulmonary vascularity are within normal limits. There are bilateral chronic lung changes. The lungs are clear. The costophrenic angles are sharp. IMPRESSION: Bilateral chronic lung changes. No evidence of acute cardiopulmonary disease. Electronically viewed and signed by Brad Skinner Physician on 03/02/2019 22:44 TREATMENT/DISPOSITION The patient presents with respiratory distress and hypoxia. He has diffuse wheezing, I do suspect a COPD exacerbation. The patient denies substance abuse, but he does have a history of substance use, which could be the triggering incident that led to his exacerbated episode. The patient was started on a nonrebreather. He was placed on nebulized albuterol and ipratropium in addition to IV Solu-Medrol. The patient was later given IV magnesium as he continued to wheeze. Given the patient's of her presentation, I do feel the patient requires further management in the hospital. The patient does have a leukocytosis, but no left shift. I suspect that this is reactive. The patient has no lactic acidosis. He is afebrile and is not tachycardic. I do not suspect an infectious etiology of symptoms. The patient is not septic, and I do not feel the patient requires a full septic work-up. The patient's chest xray does not reveal pneumonia or pneumothorax or pleural effusions or pulmonary edema. The patient does not have a widened mediastinum and does not have signs or symptoms concerning for thoracic aortic aneurysm or dissection. The patient does not have pneumomediastinum or signs concerning for esophageal tear or rupture. The patient has no clinical or radiographic signs of pericardial effusion or tamponade. The patient does not have pneumoperitoneum and I have decreased suspicion of viscus perforation as possible referred pain. The patient does have a history of heart failure, but I do not hear any murmurs or rubs or gallops at this time and I have low suspicion for this. The patient does not endorse pleuritic pain. The patient is not on hormonal therapy. The patient has no history of clotting or bleeding disorders. The patient has no calf tenderness. The patient has had no hemoptysis. He has a more likely diagnosis and COPD. I have decreased suspicion for PE. The patient's troponin and EKG are reassuring. I have low suspicion for acute coronary syndrome. ADMISSION At this time, I feel that the patient requires admission for further evaluation and management. The patient will be admitted to [Panel] in accordance with the patient's insurance. The patient was accepted by Dr. Quintero at 11:30 PM on March 02, 2019. CRITICAL CARE NOTE Time: 33 minutes excluding all billable procedures. Treatments/Evaluations: The patient was at risk of hemodynamic compromise. Timing of critical care involved close serial monitoring, evaluation of the pat ient's medical record including previous records & current laboratory/imaging studies, potential interventions for prevention of hemodynamic/ cardiopulmonary/ neurologic compromise, maintaining tight fluid balance, and any discussions with the family and/or consultants regarding the patient's status and prognosis. Disclaimer: Inadvertent spelling and grammatical errors are likely due to EHR/dictation software use and do not reflect on the overall quality of patient care. Note that the electronic time recorded on this note does not necessarily reflect the actual time of the patient encounter. Departure Diagnosis: Primary Impression: Respiratory distress Additional Impressions: Hypoxia COPD exacerbation Wheezing Leukocytosis Leukocytosis type: unspecified Qualified Codes: D72.829 - Elevated white blood cell count, unspecified Condition: Serious AGUILAR BALLARD MD Mar 02, 2019 23:14
--- NOTE | 2019-03-02 23:39 | HP ---
RIMA GUARDADO 03/02/19 2339: Date/Time of Note Date/Time of Note DATE: 03/02/19 TIME: 23:38 Assessment/Plan VTE Prophylaxis SCD applied (from Nsg): Yes Pharmacological prophylaxis: NA/contraindicated Pharm contraindication: low risk/ambulating Lines/Catheters IV Catheter Type (from Nrsg): Saline Lock Assessment/Plan Hospital Course This is a 63-year-old male being admitted to the telemetry floor for: #1 Acute hypoxic respiratory distress: Secondary to COPD exacerbation. Milena eduled nebulizers, scheduled IV steroids. Supplemental O2. Levaquin 5-day course #2 acute COPD exacerbation: With dyspnea and production with phlegm nebs, IV steroids, Levaquin. Will need to obtain a walking pulse ox once the patient is clinically improved. Hold carvedilol given his wheezing. #3 lactic acidosis: Suspect secondary to COPD exacerbation, hypoxia. There is no signs of infection. Will trend, monitor for signs of fever/infection. And further treatment as per #1 and 2. #4 history of CHF diastolic versus systolic: At the current time he does not appear to be volume overloaded. We will hold off on beta-lang at the current time given his COPD exacerbation. #5 hypertension: Continue amlodipine, lisinopril #6 anxiety: He reports that he had increased sleepiness with his citalopram 20 mg as well as hydroxyzine. I will discontinue the hydroxyzine. And I will decrease the dose of citalopram to 10 mg p.o. daily. Follow-up with primary doctor as an outpatient regarding further management. #6 DVT GI prophylaxis: SCDs, H2 lang (on steroids) Further treatment strategy will be implemented as per the clinical course Result Diagram: 03/02/19222103/02/192221 Results 24hrs Laboratory Tests Test 03/02/19 22:21 03/02/19 22:22 POC Venous Lactate 1.5 White Blood Count 12.4 #H Red Blood Count 5.24 Hemoglobin 15.7 Hematocrit 45.4 Mean Corpuscular Volume 86.6 Mean Corpuscular Hemoglobin 30.0 Mean Corpuscular Hemoglobin Concent 34.6 Red Cell Distribution Width 13.6 Platelet Count 329 Mean Platelet Volume 9.3 Immature Granulocytes % 0.900 H Neutrophils % 49.5 Lymphocytes % 26.3 Monocytes % 11.1 H Eosinophils % 12.0 H Basophils % 0.2 Nucleated Red Blood Cells % 0.0 Immature Granulocytes # 0.110 H Neutrophils # 6.2 Lymphocytes # 3.3 H Monocytes # 1.4 H Eosinophils # 1.5 H Basophils # 0.0 Nucleated Red Blood Cells # 0.0 Prothrombin Time 13.3 Prothrombin Time Ratio 1.0 INR International Normalized Ratio 1.00 Sodium Level 140 Potassium Level 3.7 Chloride Level 102 Carbon Dioxide Level 26 Anion Gap 12 Blood Urea Nitrogen 19 Creatinine 0.94 Est Glomerular Filtrat Rate mL/min > 60 Glucose Level 102 Calcium Level 9.8 Troponin I < 0.012 HPI/ROS Admit Date/Time Admit Date/Time Hx of Present Illness Chief complaint: Shortness of breath for at least the last 1 week This is a 63-year-old male with a past medical history of COPD, CHF, hypertension, hyperlipidemia who presents to the emergency department with symptoms of shortness of breath and wheezing that got worse this evening. Patient states that over the last 1 week or so he has been experiencing shortness of breath especially when he walks. He states that he has seen his primary care doctor who thinks that he may be has anxiety and that is affecting his situation. He was started on citalopram as well as hydroxyzine. He states that with these medications he just ends up sleeping a lot. He was doing fine on 10 mg of citalopram but recently his doctor increase his dose to 20 mg which he thinks made him even more sleepy. He reports that last night he started with noticing wheezing and shortness of breath. He denies any fevers. He has been coughing with greenish phlegm. He denies any chest pain. Per EMS reports, the patient was hypoxic when they arrived to pick him up. He does not use home oxygen. He denies any recent drug use aside from smoking half a pack of cigarettes daily. He does have a past history of drug use. Allergies: NKDA Medications: Carvedilol 6.25 twice daily Amlodipine 10 mg p.o. daily Aspirin 81 mg p.o. daily Citalopram 20 mg p.o. daily Hydroxyzine 10 mg p.o. every 8 hours as needed Lisinopril 40 mg p.o. daily ROS Const: As per HPI Eyes : No pain discharge or redness or change in visual acuity ENT: No pain, sore throat, congestion, congestion, dysphagia or discharge Respiratory: As per HPI Cardiovascular: No chest pain, palpitation, PND, or edema GI : no change in appetite, abdominal pain, nausea, vomiting, diarrhea, constipation, or change in the color his stool Genitourinary: No dysuria, hematuria, flank pain , discharge or CVA tenderness Musculoskeletal: No joint pain, back pain, neck pain, restricted range of motion in neck or joints Skin: No rash, bruising or hives Neuro: No headache, dizziness, syncope, seizure, focal weakness Endocrine: No polyuria, polydipsia, temperature intolerance Psych: No hallucination, depression, anxiety or suicidal ideation PMH/Family/Social Past Medical History Hypertension CHF COPD Hyperlipidemia Anxiety Tobacco use Medications Current Medications Ondansetron HCl (Zofran Inj) 4 mg ER BRIDGE PRN IV NAUSEA/VOMITING; Start 03/03/19 at 00:00; Stop 03/03/19 at 23:59 Acetaminophen (Tylenol Tab) 650 mg ER BRIDGE PRN PO .MILD PAIN 1-3 OR TEMP; Start 03/03/19 at 00:00; Stop 03/03/19 at 23:59 IV Flush (NS 3 ml) 3 ml PER PROTOCOL IV ; Start 03/03/19 at 00:00; Status UNV Ondansetron HCl (Zofran Inj) 4 mg Q6H PRN IV NAUSEA/VOMITING; Start 03/03/19 at 00:00; Status UNV Acetaminophen (Tylenol Tab) 650 mg Q6H PRN PO .PAIN 1-3 OR TEMP; Start 03/03/19 at 00:00; Status UNV Docusate Sodium (Colace) 100 mg Q12H PRN PO .CONSTIPATION; Start 03/03/19 at 00:00; Status UNV Bisacodyl (Dulcolax) 5 mg DAILY PRN PO .CONSTIPATION; Start 03/03/19 at 00:00; Status UNV Famotidine (Pepcid) 20 mg Q12 PO ; Start 03/03/19 at 00:00; Status UNV Enoxaparin Sodium (Lovenox) 40 mg DAILY SC ; Start 03/03/19 at 00:00; Status UNV Albuterol/ Ipratropium (Duoneb) 3 ml Q4H RESP THERAPY HHN ; Start 03/03/19 at 01:00; Status UNV Methylprednisolone Sodium Succinate (Solu-Medrol) 30 mg Q8 IV ; Start 03/03/19 at 06:00; Status UNV Levalbuterol (Xopenex Neb) 1.25 mg Q2H PRN HHN WHEEZING; Start 03/03/19 at 00:00; Status UNV Amlodipine Besylate (Norvasc) 10 mg DAILY PO ; Start 03/03/19 at 09:00; Status UNV Aspirin (Halfprin) 81 mg DAILY PO ; Start 03/03/19 at 09:00; Status UNV Citalopram Hydrobromide (Celexa) 20 mg DAILY PO ; Start 03/03/19 at 09:00; Status UNV Hydroxyzine HCl (Atarax) 10 mg Q8H PRN PO ITCHING; Start 03/03/19 at 00:00; Status UNV Lisinopril (Zestril) 40 mg DAILY PO ; Start 03/03/19 at 09:00; Status UNV Coded Allergies: No Known Allergy (Unverified , 02/24/19) Past Surgical History cecectomy, appendectomy Past Surgical Hx: other Family History Significant Family History: no pertinent family hx Social History Alcohol Use: none Smoking Status: Current every day smoker Drug Use: other (History of illicit drug use in the past) Exam/Review of Systems Vital Signs Vitals Vital Signs Date Temp Pulse Resp B/P (MAP) Pulse Ox O2 O2 Flow FiO2 Time Delivery Rate 03/02/19 89 20 89 21 22:12 03/02/19 Nasal 22:11 Cannula 03/02/19 98.1 132/97 22:05 (109) Exam Exam General: Currently lying in bed he does not appear to be in any acute distress, when he did appear in the emergency department patient was noted to be in respiratory distress HEENT: Atraumatic, normocephalic. The pupils are equal, round and reactive. Extraocular motor are intact Neck: Supple with full range of motion. No rigidity or meningismus Chest: Nontender Lungs: Bilateral inspiratory and expiratory wheezing, nonlabored breathing, cough Heart: Normal S1-S2, Regular rhythm and rate. No murmur, S3, or S4 Abdomen: Soft , nontender, nondistended , bowel sounds are present. No guarding no rebound tenderness , No masses or organomegaly. No costovertebral temporal an gle mass Extremities: Normal to inspection, no edema no cyanosis Neurologic: Normal mental status, speech normal, cranial nerves II through XII are intact, motor and sensory are intact, Additional Comments EKG Rate/Rhythm: Regular rate and rhythm at a rate of 89 bpm Intervals: Normal [place]: Left axis Impression: Poor R wave progression indicating likely old anterior lateral ischemia, without evidence of acute ischemia or arrhythmia PROCEDURE: XR Chest. CLINICAL INDICATION: Shortness of breath TECHNIQUE: Single portable view of the chest was obtained COMPARISON: CR CHEST 01/22/2016; CR CHEST 08/28/2015; CR CHEST 07/27/2015 FINDINGS: The trachea is midline. The cardiac silhouette and pulmonary vascularity are within normal limits. There are bilateral chronic lung changes. The lungs are clear. The costophrenic angles are sharp. IMPRESSION: 1. Bilateral chronic lung changes. No evidence of acute cardiopulmonary disease. RPTAT: AAPP Physician Daisy Date Time Electronically viewed and signed by Brad Skinner Physician on 03/02/2019 22:44 JL/ CC: AGUILAR BALLARD MD [phone] ODALYS MADDOX NP 03/03/19 1134: Assessment/Plan Assessment/Plan Result Diagram: 03/02/192 03/02/19 222 PMH/Family/Social Past Medical History Coded Allergies: No Known Allergy (Unverified , 02/24/19) RIMA GUARDADO Mar 02, 2019 23:39 ODALYS MADDOX NP Mar 03, 2019 11:34
[2019-03-03] MEDS ORDERED: DOCUSATE SODIUM 100 MG CAP PO PRN
[2019-03-03] MEDS ORDERED: ACETAMINOPHEN 325 MG TAB PO PRN ×2
[2019-03-03] MEDS ORDERED: LEVALBUTEROL (NEB) 1.25 MG/0.5 ML AMP HHN PRN
[2019-03-03] MEDS ORDERED: hydrOXYzine HCL 10 MG TAB PO PRN
[2019-03-03] MEDS ORDERED: ONDANSETRON 4 MG INJ IV PRN ×2
[2019-03-03] MEDS ORDERED: BISACODYL (EC) 5 MG TAB PO PRN
[2019-03-03] MEDS ORDERED: NACL 0.9% 3 ML SYG IV SCH
[2019-03-03] MEDS: ALBUTEROL/IPRATROPIUM (NEB) 3 ML AMP HHN SCH ×5 (00:17→20:07)
[2019-03-03 01:00] VITALS: BP 129/84; PULSE 79; RESP 18; Ht 167.6 cm; Wt 67.0 kg
[2019-03-03] MEDS: FAMOTIDINE 20 MG TAB PO SCH ×3 (01:06→21:11)
[2019-03-03] MEDS: ENOXAPARIN 40 MG/0.4 ML SYG SC SCH ×2 (01:08→09:43)
[2019-03-03 04:34] VITALS: BP 134/79; PULSE 83; RESP 18
[2019-03-03] MEDS ORDERED: BENZONATATE 100 MG CAP PO PRN (05:00)
[2019-03-03] MEDS ORDERED: SOD CHLORIDE 0.9% 500 ML IV ONE ×2 (05:00→07:00)
[2019-03-03] MEDS: GUAIFENESIN/DM 5ML CUP PO PRN ×2 (05:16→21:09)
[2019-03-03] MEDS ORDERED: METHYLPREDNISOLONE 40 MG INJ IV SCH (06:00)
[2019-03-03] MEDS: LEVOFLOXACIN 750 MG TABLET PO SCH (06:13)
[2019-03-03 07:10] VITALS: BP 112/70; PULSE 91; RESP 19
[2019-03-03] MEDS ORDERED: CITALOPRAM 20 MG TAB PO SCH (09:00)
[2019-03-03] MEDS: LISINOPRIL 20 MG TAB PO SCH (09:34)
[2019-03-03] MEDS: CITALOPRAM 20 MG TAB PO SCH (09:34)
[2019-03-03] MEDS: AMLODIPINE 10 MG TAB PO SCH (09:34)
[2019-03-03] MEDS: ASPIRIN (EC) 81 MG TAB PO SCH (09:35)
--- NOTE | 2019-03-03 11:35 | PN ---
Date/Time of Note Date/Time of Note DATE: 03/03/19 TIME: 11:35 Assessment/Plan VTE Prophylaxis SCD applied (from Nsg): Yes Pharmacological prophylaxis: NA/contraindicated Pharm contraindication: low risk/ambulating Lines/Catheters IV Catheter Type (from Nrsg): Saline Lock Assessment/Plan Hospital Course SUBJECTIVE: Sitting up in bed, having productive cough. No fevers. OBJECTIVE: Vital signs-see below PHYSICAL EXAM: Constitutional: Adequately built,not in acute distress. HEENT: Head atraumatic and normocephalic. Eyes: Extraocular muscles intact. Anicteric sclerae. Pupils equal bilaterally, reactive to light. NECK: Supple without lymph node. CHEST: Few wheezing bilaterally. HEART: S1, S2. Regular rate and rhythm. ABDOMEN: Soft/non tender with no rebound tenderness. Bowel sounds were present. EXTREMITIES: No cyanosis, clubbing or edema. NEUROLOGIC: Alert and oriented x3. No focal deficit. No sensory deficit. PSYCHOSOCIAL: No signs of depression. INTEGUMENTARY: No open wounds. ASSESSMENT AND PLAN:63 yop w/active tobacco smoking, copd,htn,hld,chf here w/ 3wks durtaion of productive cough/wheezing/subjective talya/sob unrelieved by rescue inhaler.. COPD exacerbation -cont.NICOLAS,tapering steroids -Add LABA Acute bronchitis -cont.antimicrobials Lactic acidosis -COPD exacerbation versus sepsis. Go ahead and obtain cultures. Respiratory culture also has been added. -Continue current antimicrobial regimen. Chronic congestive heart failure -Compensated -Continue home medications Essential hypertension -Stable. Continue antihypertensives->Change croreg to metoprolol Hyperlipidemia -Statin Anxiety disorders -Resume home meds Tobacco dependency -Counseled on cessation. DVT prophylaxis: SCDs Disposition: Continue current management. Await for clinical improvement. Patient was seen in collaboration with Dr. Okeefe. Result Diagram: 03/03/19 0742 03/03/19 0742 Results 24hrs Laboratory Tests Test 03/02/19 22:21 03/02/19 22:22 03/03/19 01:14 03/03/19 03:22 POC Venous Lactate 1.5 White Blood Count 12.4 #H Red Blood Count 5.24 Hemoglobin 15.7 Hematocrit 45.4 Mean Corpuscular 86.6 Volume Mean Corpuscular 30.0 Hemoglobin Mean Corpuscular 34.6 Hemoglobin Concent Red Cell 13.6 Distribution Width Platelet Count 329 Mean Platelet Volume 9.3 Immature 0.900 H Granulocytes % Neutrophils % 49.5 Lymphocytes % 26.3 Monocytes % 11.1 H Eosinophils % 12.0 H Basophils % 0.2 Nucleated Red Blood 0.0 Cells % Immature 0.110 H Granulocytes # Neutrophils # 6.2 Lymphocytes # 3.3 H Monocytes # 1.4 H Eosinophils # 1.5 H Basophils # 0.0 Nucleated Red Blood 0.0 Cells # Prothrombin Time 13.3 Prothrombin Time 1.0 Ratio INR International 1.00 Normalized Ratio Sodium Level 140 Potassium Level 3.7 Chloride Level 102 Carbon Dioxide Level 26 Anion Gap 12 Blood Urea Nitrogen 19 Creatinine 0.94 Est Glomerular > 60 Filtrat Rate mL/min Glucose Level 102 Calcium Level 9.8 Troponin I < 0.012 Lactic Acid Level 2.3 *H 2.7 *H Hemoglobin A1c 5.0 Magnesium Level 2.0 Triglycerides Level 101 Cholesterol Level 224 H LDL Cholesterol, 158 Calculated HDL Cholesterol 46 Cholesterol/HDL 4.8 Ratio Thyroid Stimulating 0.458 L Hormone (TSH) Test 03/03/19 07:42 White Blood Count 9.7 # Red Blood Count 4.67 L Hemoglobin 13.8 L Hematocrit 40.8 L Mean Corpuscular 87.4 Volume Mean Corpuscular 29.6 Hemoglobin Mean Corpuscular 33.8 Hemoglobin Concent Red Cell 13.7 Distribution Width Platelet Count 272 Mean Platelet Volume 9.6 Immature 0.600 H Granulocytes % Neutrophils % 89.8 H Lymphocytes % 8.6 L Monocytes % 0.8 Eosinophils % 0.1 Basophils % 0.1 Nucleated Red Blood 0.0 Cells % Immature 0.060 H Granulocytes # Neutrophils # 8.7 H Lymphocytes # 0.8 Monocytes # 0.1 L Eosinophils # 0.0 Basophils # 0.0 Nucleated Red Blood 0.0 Cells # Sodium Level 139 Potassium Level 3.8 Chloride Level 106 Carbon Dioxide Level 22 Anion Gap 11 Blood Urea Nitrogen 14 Creatinine 0.65 Est Glomerular > 60 Filtrat Rate mL/min Glucose Level 156 Lactic Acid Level 4.1 *H Calcium Level 8.9 Total Bilirubin 0.6 Direct Bilirubin 0.00 Indirect Bilirubin 0.6 Aspartate Amino 18 Transf (AST/SGOT) Alanine 13 Aminotransferase (AL T/SGPT) Alkaline Phosphatase 58 Total Protein 7.0 Albumin 3.9 Globulin 3.10 Albumin/Globulin 1.25 Ratio Exam/Review of Systems Exam Vitals Vital Signs Date Temp Pulse Resp B/P (MAP) Pulse Ox O2 O2 Flow FiO2 Time Delivery Rate 03/03/19 98.1 91 19 112/70 96 07:10 (84) 03/03/19 Nasal 2.0 04:34 Cannula 03/02/19 21 22:12 Intake and Output 03/02/19 03/02/19 03/03/19 1515:00 23:00 07:00 IntakeIntake Total 440 ml OutputOutput Total 400 ml BalanceBalance 40 ml Results Results 24hrs Laboratory Tests Test 03/02/19 22:21 03/02/19 22:22 03/03/19 01:14 03/03/19 03:22 POC Venous Lactate 1.5 White Blood Count 12.4 #H Red Blood Count 5.24 Hemoglobin 15.7 Hematocrit 45.4 Mean Corpuscular 86.6 Volume Mean Corpuscular 30.0 Hemoglobin Mean Corpuscular 34.6 Hemoglobin Concent Red Cell 13.6 Distribution Width Platelet Count 329 Mean Platelet Volume 9.3 Immature 0.900 H Granulocytes % Neutrophils % 49.5 Lymphocytes % 26.3 Monocytes % 11.1 H Eosinophils % 12.0 H Basophils % 0.2 Nucleated Red Blood 0.0 Cells % Immature 0.110 H Granulocytes # Neutrophils # 6.2 Lymphocytes # 3.3 H Monocytes # 1.4 H Eosinophils # 1.5 H Basophils # 0.0 Nucleated Red Blood 0.0 Cells # Prothrombin Time 13.3 Prothrombin Time 1.0 Ratio INR International 1.00 Normalized Ratio Sodium Level 140 Potassium Level 3.7 Chloride Level 102 Carbon Dioxide Level 26 Anion Gap 12 Blood Urea Nitrogen 19 Creatinine 0.94 Est Glomerular > 60 Filtrat Rate mL/min Glucose Level 102 Calcium Level 9.8 Troponin I < 0.012 Lactic Acid Level 2.3 *H 2.7 *H Hemoglobin A1c 5.0 Magnesium Level 2.0 Triglycerides Level 101 Cholesterol Level 224 H LDL Cholesterol, 158 Calculated HDL Cholesterol 46 Cholesterol/HDL 4.8 Ratio Thyroid Stimulating 0.458 L Hormone (TSH) Test 03/03/19 07:42 White Blood Count 9.7 # Red Blood Count 4.67 L Hemoglobin 13.8 L Hematocrit 40.8 L Mean Corpuscular 87.4 Volume Mean Corpuscular 29.6 Hemoglobin Mean Corpuscular 33.8 Hemoglobin Concent Red Cell 13.7 Distribution Width Platelet Count 272 Mean Platelet Volume 9.6 Immature 0.600 H Granulocytes % Neutrophils % 89.8 H Lymphocytes % 8.6 L Monocytes % 0.8 Eosinophils % 0.1 Basophils % 0.1 Nucleated Red Blood 0.0 Cells % Immature 0.060 H Granulocytes # Neutrophils # 8.7 H Lymphocytes # 0.8 Monocytes # 0.1 L Eosinophils # 0.0 Basophils # 0.0 Nucleated Red Blood 0.0 Cells # Sodium Level 139 Potassium Level 3.8 Chloride Level 106 Carbon Dioxide Level 22 Anion Gap 11 Blood Urea Nitrogen 14 Creatinine 0.65 Est Glomerular > 60 Filtrat Rate mL/min Glucose Level 156 Lactic Acid Level 4.1 *H Calcium Level 8.9 Total Bilirubin 0.6 Direct Bilirubin 0.00 Indirect Bilirubin 0.6 Aspartate Amino 18 Transf (AST/SGOT) Alanine 13 Aminotransferase (AL T/SGPT) Alkaline Phosphatase 58 Total Protein 7.0 Albumin 3.9 Globulin 3.10 Albumin/Globulin 1.25 Ratio Medications Medication Current Medications Ondansetron HCl (Zofran Inj) 4 mg ER BRIDGE PRN IV NAUSEA/VOMITING; Start 03/03/19 at 00:00; Stop 03/03/19 at 23:59 Acetaminophen (Tylenol Tab) 650 mg ER BRIDGE PRN PO .MILD PAIN 1-3 OR TEMP; Start 03/03/19 at 00:00; Stop 03/03/19 at 23:59 IV Flush (NS 3 ml) 3 ml PER PROTOCOL IV ; Start 03/03/19 at 00:00 Ondansetron HCl (Zofran Inj) 4 mg Q6H PRN IV NAUSEA/VOMITING; Start 03/03/19 at 00:00 Acetaminophen (Tylenol Tab) 650 mg Q6H PRN PO .PAIN 1-3 OR TEMP; Start 03/03/19 at 00:00 Docusate Sodium (Colace) 100 mg Q12H PRN PO .CONSTIPATION; Start 03/03/19 at 00:00 Bisacodyl (Dulcolax) 5 mg DAILY PRN PO .CONSTIPATION; Start 03/03/19 at 00:00 Famotidine (Pepcid) 20 mg Q12 PO Last administered on 03/03/19at 09:35; Admin Dose 20 MG; Start 03/03/19 at 00:00 Enoxaparin Sodium (Lovenox) 40 mg DAILY SC Last administered on 03/03/19 09:43; Admin Dose 40 MG; Start 03/03/19 at 00:00 Albuterol/ Ipratropium (Duoneb) 3 ml Q4H RESP THERAPY HHN Last administered on 03/03/19 09:04; Admin Dose 3 ML; Start 03/03/19 at 01:00 Methylprednisolone Sodium Succinate (Solu-Medrol) 30 mg Q8 IV Last administered on 03/03/19 05:15; Admin Dose 30 MG; Start 03/03/19 at 06:00 Levalbuterol (Xopenex Neb) 1.25 mg Q2H RESP THERAPY PRN HHN WHEEZING; Start 03/03/19 at 00:00 Amlodipine Besylate (Norvasc) 10 mg DAILY PO Last administered on 03/03/19 09:34; Admin Dose 10 MG; Start 03/03/19 at 09:00 Aspirin (Halfprin) 81 mg DAILY PO Last administered on 03/03/19 09:35; Admin Dose 81 MG; Start 03/03/19 at 09:00 Lisinopril (Zestril) 40 mg DAILY PO Last administered on 03/03/19 09:34; Admin Dose 40 MG; Start 03/03/19 at 09:00 Levofloxacin (Levaquin) 750 mg DAILY@06 PO Last administered on 03/03/19at 06:13; Admin Dose 750 MG; Start 03/03/19 at 06:00; Stop 03/08/19 at 05:59 Benzonatate (Tessalon) 100 mg TID PRN PO COUGH; Start 03/03/19 at 05:00 Citalopram Hydrobromide (Celexa) 10 mg DAILY PO Last administered on 03/03/19 09:34; Admin Dose 10 MG; Start 03/03/19 at 09:00 Guaifenesin/ Dextromethorphan (Robitussin Dm Liquid Cup) 10 ml Q4H PRN PO COUGH Last administered on 03/03/19 05:16; Admin Dose 10 ML; Start 03/03/19 at 05:30 Carvedilol (Coreg) 6.25 mg BID PO ; Start 03/04/19 at 09:00; Status ODALYS [employer] Mar 03, 2019 11:35
[2019-03-03 11:47] VITALS: BP 135/70; PULSE 100; RESP 18
[2019-03-03] MEDS: TIOTROPIUM 18 MCG CAPSULE INHA DEV INH SCH (14:30)
[2019-03-03 15:51] VITALS: BP 117/61; PULSE 97; RESP 18
[2019-03-03 20:00] VITALS: BP 124/70; PULSE 87; RESP 18
[2019-03-03] MEDS: METHYLPREDNISOLONE 40 MG INJ IV SCH (21:11)
[2019-03-03] MEDS: METOPROLOL 25 MG TAB NGT SCH (21:11)
[2019-03-04] VITALS: BP_SYST 111; BP_SYST 130; BP_DIAS 58; BP_DIAS 69; PULSE 83; PULSE 85; RESP 18
[2019-03-04] MEDS: ALBUTEROL/IPRATROPIUM (NEB) 3 ML AMP HHN SCH ×3 (00:17→08:04)
[2019-03-04 04:00] VITALS: BP 133/71; PULSE 80; RESP 19
[2019-03-04] MEDS ORDERED: LORAZEPAM 2 MG INJ IV ONE (04:30)
[2019-03-04] MEDS: LEVOFLOXACIN 750 MG TABLET PO SCH (05:05)
[2019-03-04 07:36] VITALS: BP 112/67; PULSE 91; RESP 22
[2019-03-04] MEDS: CITALOPRAM 20 MG TAB PO SCH (08:40)
[2019-03-04] MEDS: FAMOTIDINE 20 MG TAB PO SCH (08:41)
[2019-03-04] MEDS: LISINOPRIL 20 MG TAB PO SCH (08:41)
[2019-03-04] MEDS: AMLODIPINE 10 MG TAB PO SCH (08:41)
[2019-03-04] MEDS: ASPIRIN (EC) 81 MG TAB PO SCH (08:41)
[2019-03-04] MEDS: METHYLPREDNISOLONE 40 MG INJ IV SCH (08:42)
[2019-03-04] MEDS: ENOXAPARIN 40 MG/0.4 ML SYG SC SCH (08:46)
[2019-03-04] MEDS: METOPROLOL 25 MG TAB NGT SCH (08:49)
[2019-03-04] MEDS: TIOTROPIUM 18 MCG CAPSULE INHA DEV INH SCH (09:00)
--- NOTE | 2019-03-04 10:19 | DS ---
Date/Time of Note Date/Time of Note DATE: 03/04/19 TIME: 10:17 Discharge Summary Admission/Discharge Info Admit Date/Time Mar 02, 2019 at 23:35 Discharge Date/Time 03/04/2019 (AGAINST MEDICAL ADVICE) Discharge Diagnosis COPD exacerbation Acute bronchitis Lactic acidosis -COPD exacerbation versus sepsis. Chronic congestive heart failure Essential hypertension Hyperlipidemia Anxiety disorders Tobacco dependency Patient Condition: Stable Procedures 03/02/2019: Chest x-ray: IMPRESSION: 1. Bilateral chronic lung changes. No evidence of acute cardiopulmonary disease. Hospital Course 63 yop w/active tobacco smoking, copd,htn,hld,chf, possible homelessness, here w/ 3wks duration of productive cough/wheezing/subjective fevers/sob unrelieved by rescue inhaler.. Patient was treated for COPD exacerbation with possible acute bronchitis. Patient's symptoms improving. He was continued on home medications. Patient was also given nicotine patch for underlying tobacco dependency. Patient also reported that he needs his methadone and does not remember his dosing. As the plan was to keep him off steroids and to get in touch with his methadone clinic to determine appropriate dosing, patient did not want to stay in the hospital any further and decided to leave. He also wanted to smoke. He is alert, oriented, not in any acute distress. Despite our efforts, patient had decided to leave AGAINST MEDICAL ADVICE. Patient has normal mental status and full decisional capacity. Patient understood her condition and the risk of leaving AMA, including but not limited to permanent disability, etc., and had an opportunity to ask questions about own medical condition. The patient has been informed that the paient may return for care anytime and has been referred to primary care provider for follow-up as soon as possible. Please note that on day of discharge, patient has a white count of 17,600 this could be partly secondary to patient receiving IV steroids. He did not have any fevers. Patient was seen in collaboration with Dr. Mcbride [place] Meds Reported Medications Citalopram Hydrobromide* (Citalopram Hydrobromide*) 20 Mg Tablet, 20 MG PO DAILY, #30 TAB 02/24/19 Hydroxyzine Hcl* (Hydroxyzine Hcl*) 10 Mg Tablet, 10 MG PO Q8H PRN for ITCHING, #30 TAB 02/24/19 Aspirin* (Aspirin* EC) 81 Mg Tablet., 81 MG PO DAILY, TAB 02/24/19 Carvedilol* (Carvedilol*) 6.25 Mg Tablet, 6.25 MG PO BID, #60 TAB 02/24/19 Lisinopril* (Lisinopril*) 40 Mg Tablet, 40 MG PO DAILY, #30 TAB 02/24/19 Amlodipine Besylate* (Amlodipine Besylate*) 10 Mg Tablet, 10 MG PO DAILY, #30 TAB 02/24/19 Primary Care Provider [facility] Pending Labs Laboratory Tests Test 03/03/19 14:45 03/04/19 06:09 Urine Opiates Screen Positive (NEGATIVE) Urine Barbiturates Negative (NEGATIVE) Urine Amphetamines Screen Negative (NEGATIVE) Urine Benzodiazepines Screen Negative (NEGATIVE) Urine Cocaine Screen Negative (NEGATIVE) Urine Cannabinoids Negative (NEGATIVE) White Blood Count 17.6 10^3/ul (4.8-10.8) Red Blood Count 4.71 10^6/ul (4.70-6.10) Hemoglobin 13.8 g/dl (14.0-18.0) Hematocrit 39.9 % (42.0-52.0) Mean Corpuscular Volume 84.7 fl (82.0-101.0) Mean Corpuscular Hemoglobin 29.3 pg (29.0-33.0) Mean Corpuscular 34.6 g/dl (32.0-37.0) Hemoglobin Concent Red Cell Distribution Width 14.0 % (11.5-14.5) Platelet Count 281 10^3/UL (140-415) Mean Platelet Volume 10.0 fl (7.4-10.4) Immature Granulocytes % 1.000 % (0.001-0.429) Neutrophils % 86.0 % (39.0-77.0) Lymphocytes % 6.3 % (15.0-51.0) Monocytes % 6.5 % (0.0-11.0) Eosinophils % 0.0 % (0.0-7.0) Basophils % 0.2 % (0.0-2.0) Nucleated Red Blood Cells % 0.0 /100WBC (0.0-0.0) Immature Granulocytes # 0.170 10^3/ul (0.0-0.031) Neutrophils # 15.2 10^3/ul (1.6-7.5) Lymphocytes # 1.1 10^3/ul (0.8-2.9) Monocytes # 1.2 10^3/ul (0.3-0.9) Eosinophils # 0.0 10^3/ul (0.0-0.5) Basophils # 0.0 10^3/ul (0.0-0.1) Nucleated Red Blood Cells # 0.0 10^3/ul (0.0-0.0) Sodium Level 142 mmol/L (135-144) Potassium Level 3.9 mmol/L (3.5-5.1) Chloride Level 106 mmol/L (97-110) Carbon Dioxide Level 24 mmol/L (21-31) Anion Gap 12 (5-13) Blood Urea Nitrogen 11 mg/dl (7-20) Creatinine 0.61 mg/dl (0.61-1.24) Est Glomerular Filtrat > 60 mL/min (>60) Rate mL/min Glucose Level 133 mg/dl (70-220) Calcium Level 9.4 mg/dl (8.4-10.2) Magnesium Level 2.0 mg/dl (1.7-2.5) Total Bilirubin 0.4 mg/dl (0.2-1.3) Direct Bilirubin 0.00 mg/dl (0.00-0.20) Indirect Bilirubin 0.4 mg/dl (0-1.1) Aspartate Amino 18 IU/L (15-46) Transf (AST/SGOT) Alanine < 6 IU/L (13-69) Aminotransferase (ALT/SGPT) Alkaline Phosphatase 56 IU/L (42-121) Total Protein 6.8 g/dl (6.1-8.1) Albumin 3.9 g/dl (3.3-4.9) Globulin 2.90 g/dl (1.3-3.2) Albumin/Globulin Ratio 1.34 Triglycerides Level 164 mg/dl (0-149) Cholesterol Level 219 mg/dl (100-200) LDL Cholesterol, Calculated 142 mg/dl HDL Cholesterol 44 mg/dl (30-78) Cholesterol/HDL Ratio 4.9 RATIO Microbiology Date/Time Source Procedure Growth Status 03/03/19 14:45 Clean Catch Urine Urine Culture - Preliminary NO Resulted GROWTH AFTER 24 HOURS 03/03/19 14:00 Sputum Gram Stain Pending Resulted 6/27/19 14:00 Respiratory Culture - Resulted Preliminary Normal Respiratory Azul ODALYS M[employer] Mar 04, 2019 10:19
[2019-03-05] MEDS ORDERED: ALBU8.5H8 INH (09:34)
[2019-03-05] MEDS ORDERED: PRED20TA PO (09:34)
== END 2019-03-04 10:16 | disposition left against medical advice (07) | DRG 191 ==
LOC: E/R 21:59 → 6WM 23:35
PROVIDERS: ADMIT Family Medicine; ATTEND Family Medicine
DX: J44.1 Chronic obstructive pulmonary disease with (acute) exacerbation (principal); E87.2 Acidosis; I11.0 Hypertensive heart disease with heart failure; I50.9 Heart failure, unspecified; E78.5 Hyperlipidemia, unspecified; F17.200 Nicotine dependence, unspecified, uncomplicated; J44.0 Chronic obstructive pulmonary disease with (acute) lower respiratory infection; J20.9 Acute bronchitis, unspecified
CPT/HCPCS: 36415; 71045; 80048; 80053; 80061; 80307; 82306; 83036; 83605; 83735; 84443; 84484; 85025; 85610; 87070; 87086; 93005; 94640; 94644; 94664; 96374; J1650; J2060; J2920; J2930; J7040

== ENCOUNTER 2019-03-05 09:01 | Emergency (ER) | payer MEDICARE, OTHER ==
[~2019-03-05] VITALS: Ht 167.6 cm; Wt 66.1 kg
[2019-03-05 09:05] VITALS: BP 128/82; PULSE 118; RESP 24; Ht 167.6 cm; Wt 66.1 kg
[2019-03-05] MEDS ORDERED: PRED20TA PO (09:34)
[2019-03-05] MEDS ORDERED: ALBU8.5H8 INH (09:34)
--- NOTE | 2019-03-05 09:38 | ERD ---
ER Documentation Chief Complaint Chief Complaint SOB HX copd would like to talk to social worker assistant KENIA 63-year-old male presents to the emergency department requesting the medications that he would have gotten when he was released from the hospital. Upon review of the patient's records, patient has a history of COPD and was recently hospitalized. He left AGAINST MEDICAL ADVICE to obtain his methadone. He returns to the emergency department today with no new complaints. He states he still has some wheezing, but does not feel short of breath. He reports no fevers, chills, chest pain. He is requesting his medications. ROS All systems reviewed and are negative except as per history of present illness. Medications Home Meds Active Scripts Albuterol Sulfate* (Proair HFA*) 8.5 Gm Hfa.aer.ad, 2 PUFF INH Q4H PRN for WHEEZING AND SOB, #1 INHALER Prov:ULISSES WITT 03/05/19 Prednisone* (Prednisone*) 20 Mg Tab, 60 MG PO DAILY for 5 Days, TAB Prov:ULISSES WITT 03/05/19 Reported Medications Citalopram Hydrobromide* (Citalopram Hydrobromide*) 20 Mg Tablet, 20 MG PO DAILY, #30 TAB 02/24/19 Hydroxyzine Hcl* (Hydroxyzine Hcl*) 10 Mg Tablet, 10 MG PO Q8H PRN for ITCHING, #30 TAB 02/24/19 Aspirin* (Aspirin* EC) 81 Mg Tablet.dr, 81 MG PO DAILY, TAB 02/24/19 Carvedilol* (Carvedilol*) 6.25 Mg Tablet, 6.25 MG PO BID, #60 TAB 02/24/19 Lisinopril* (Lisinopril*) 40 Mg Tablet, 40 MG PO DAILY, #30 TAB 02/24/19 Amlodipine Besylate* (Amlodipine Besylate*) 10 Mg Tablet, 10 MG PO DAILY, #30 TAB 02/24/19 Allergies Allergies: Coded Allergies: No Known Allergy (Unverified , 02/24/19) PMhx/Soc History of Surgery: No Anesthesia Reaction: No Hx Neurological Disorder: No Hx Respiratory Disorders: Yes (copd) Hx Cardiac Disorders: No Hx Psychiatric Problems: No Hx Miscellaneous Medical Probl: No Hx Alcohol Use: No Hx Substance Use: No Hx Tobacco Use: Yes Smoking Status: Current every day smoker Physical Exam Vitals Vital Signs Date Temp Pulse Resp B/P (MAP) Pulse Ox O2 O2 Flow FiO2 Time Delivery Rate 03/05/19 98.0 118 24 128/82 90 09:05 (97) Physical Exam GENERAL: The patient is well developed and appropriate for usual state of health in no apparent distress HEENT: Pupils equal, round, and reactive to light. EOMI. There is no scleral icterus. NECK: C-spine is soft and supple, there is no meningismus. There is no cervical lymphadenopathy. LUNGS: Occasional wheezing bilaterally with no tachypnea or retractions HEART: Regular rate and rhythm, no murmurs, clicks, rubs or gallops. ABDOMEN: Soft, non-tender, non-distended. There are bowel sounds in all four quadrants. No rebound or guarding. EXTREMITIES: There is no peripheral cyanosis or edema. No focal swelling or erythema. NEURO: The patient moves all four extremities with 5/5 strength. Cranial nerves II - XII are intact. Normal gait. Alert and oriented SKIN: There is no apparent rash or petechiae. HEME/LYMPHATIC: There is no evidence of excessive bruising or lymphedema. PSYCHIATRIC: The patient does not appear anxious or depressed. Procedures/MDM Patient was taken to a room, seen and examined Medical decision makin-year-old male with a history of COPD presents the emergency department with ongoing wheezing consistent with his COPD. Patient has no evidence of significant hypoxemia or increasing work of them. He appears to be clinically comfortable with no evidence of severe respiratory distress. His prescriptions will be provided for him. He states he very clearly does not want to stay in the hospital again and he does seem appropriate for discharge at this time. Departure Diagnosis: Primary Impression: COPD (chronic obstructive pulmonary disease) Condition: Stable Patient Instructions: Treatments for COPD ULISSES WITT Mar 05, 2019 09:38
== END 2019-03-05 09:48 | disposition home or self-care (01) ==
LOC: E/R 09:01
DX: J44.1 Chronic obstructive pulmonary disease with (acute) exacerbation (principal); F17.210 Nicotine dependence, cigarettes, uncomplicated; Z79.82 Long term (current) use of aspirin
CPT/HCPCS: 99283